=== PATIENT | male | born 1945 | race Caucasian/White ===

== ENCOUNTER → 2016-08-04 | Outpatient (REF) | payer MEDICARE, OTHER | LOC: M SFHCPLAZ 07:54 | PROVIDERS: ATTEND Internal Medicine | DX: R73.01 Impaired fasting glucose (principal); E78.00 Pure hypercholesterolemia, unspecified ==

== ENCOUNTER → 2016-08-27 | Outpatient (CLI) | payer MEDICARE, BC, OTHER ==
[2016-08-27 11:50] LABS: BASO % 0.3 % (0.0-1.0); EOS # 0.3 K/mm3 (0.0-0.50); LARGE UNSTAINED CELL # 0.1 K/mm3 (0.0-0.4); LARGE UNSTAINED CELL % 1.6 % (0.0-4.0); LYMPH # 0.5 K/mm3 (1.5-4.5); LYMPH % 5.9 % (24.0-44.0); MEAN CORPUSCULAR HEMOGLOBIN 31.6 pg (27.0-33.0); MEAN CORPUSCULAR HGB CONC 33.6 g/dl (32.0-36.5); MEAN CORPUSCULAR VOLUME 94.3 fl (80.0-96.0); MONO # 0.5 K/mm3 (0.0-0.8); MONO % 6.6 % (0.0-5.0); NEUTROPHILS # 5.8 K/mm3 (1.8-7.7); NEUTROPHILS % 81.6 % (36.0-66.0); PLATELET COUNT, AUTOMATED 233 k/mm3 (150-450); RED CELL DISTRIBUTION WIDTH 13.3 % (11.5-14.5); WHITE BLOOD COUNT 7.1 K/mm3 (4.0-10.0)
[2016-08-27 12:04] LABS: ALBUMIN 4.1 GM/DL (3.2-5.2); ALBUMIN/GLOBULIN RATIO 1.41 (1.00-1.93); BILIRUBIN,TOTAL 0.5 MG/DL (0.2-1.0); CALCIUM LEVEL 9.1 MG/DL (8.8-10.2); CREATININE FOR GFR 1.49 MG/DL (0.70-1.30); GLOMERULAR FILTRATION RATE 49.2 (>42); POTASSIUM SERUM 4.6 MEQ/L (3.5-5.1)
== END ==
LOC: M LAB 11:13
PROVIDERS: ATTEND Internal Medicine
DX: C82.06 Follicular lymphoma grade I, intrapelvic lymph nodes (principal)

== ENCOUNTER → 2016-09-01 | Outpatient (CLI) | payer MEDICARE, BC, OTHER ==
[~2016-09-01] MED LIST: GASTROGRAFIN SOLUTION 30ML (Q9963) As Ordered ONE; ISOVUE-370 76% 100ML VIAL (Q9967) As Ordered ONE
--- NOTE | 2016-09-01 14:04 | REP ---
Clinical: Follicular lymphoma. Technique: Axial contrast enhanced images from the lung bases to the pubic symphysis using oral and 100 ml Isovue 370 intravenous contrast material with precontrast and delayed images of the abdomen as well as coronal and sagittal re-formations. Comparison: 03/28/2016. Findings: Lung bases demonstrate bibasilar fibrotic changes. Visualized portions of the heart and pericardium are normal. Liver demonstrates small stable hepatic cysts without significant abnormality. Spleen is normal in size and appearance. Pancreas, gallbladder, and bilateral adrenal glands are normal. The left kidney is atrophic and demonstrates chronic inflammatory stranding predominate along the lower pole as well as stable cysts measuring up to 2.1 cm diameter. The right kidney demonstrates 2 mm nephrolith and multiple cysts including posterior exophytic cyst measuring 4.5 cm diameter and is unchanged compared to prior examination. The enteric system is without obstruction or acute inflammatory process and a normal terminal ileum and appendix are identified in the right lower quadrant. Scattered sigmoid diverticula noted without acute diverticulitis. Pelvis demonstrates normal bladder and mildly prominent prostate gland measuring 5 cm transverse diameter. No pelvic fluid or ascites. No significant intraperitoneal or retroperitoneal adenopathy. Atherosclerotic changes of the aorta and vasculature noted without aneurysm. Skeletal structures demonstrate degenerative changes. Impression: 1. 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 2. Chronic atrophic left kidney and bilateral renal cysts along with 2 mm nonobstructing right renal calculus unchanged compared to prior examination. 3. Few sigmoid diverticula without acute diverticulitis. 4. No ascites, mass, or intra-abdominal/pelvic adenopathy. Signed by Oliver Spring MD 09/01/2016 01:55 P
--- NOTE | 2016-09-01 14:05 | REP ---
CT of the chest with IV contrast: Comparisons are 10/22/2015 and 03/14/2014. Review of the film file reveals history of lymphoma and bladder carcinoma. There is a 3 mm nodule laterally in the right upper lobe on image 48, unchanged from 10/22/2015. On 03/14/2014, this nodule measured 5 mm. This is compatible with a benign nodule. 10/22/2015 there was a another right upper lobe lung nodule posteromedial to the above described nodule. This nodule is no longer present on the study today and was not present 03/14/2014. This is consistent with a small focal zone of transient atelectasis. There is an 8 mm nodule inferiorly in the right middle lobe, unchanged from both prior studies, therefore, likely benign. There are no other lung nodules or masses. There are no acute infiltrates or effusions. There is no hilar, mediastinal, or axillary lymph node enlargement. The thoracic aorta is unremarkable. Cardiac size normal. There is no pericardial effusion. Upper abdomen: There is a stable 11 mm hypodensity at the inferior tip of the hepatic right lobe, unchanged, compatible with hepatic cyst. There is a hypodensity in the dome of the liver measuring 9 mm, unchanged from prior studies, compatible with hepatic cyst. Visualized portions of the gallbladder, pancreas and spleen are unremarkable. Visualized portion of the right kidney contains a few renal cysts, largest posteriorly appears exophytic and measures 4.6 cm in diameter, not significantly changed from the prior studies. The visualized portion of the left kidney appears markedly atrophic. There are a few cortical cysts. This is a change from the prior studies where there was hydronephrosis. The adrenals are unremarkable. Impression: Right lung nodules are stable compared to 03/14/2014, therefore likely benign. One nodule has resolved compatible with transient focal atelectasis. There are no new lung nodules or masses. No acute infiltrates or effusions. No adenopathy. Small hypodense lesions in the liver are stable, compatible with hepatic cysts. Upper pole right renal cysts. The visualized upper pole of the left kidney is atrophic and contains cysts. The previous left hydronephrosis is no longer identified. No lytic, blastic or destructive skeletal changes are identified. Signed by Antonio Richards MD 09/01/2016 01:56 P
== END ==
LOC: M RAD 10:36
PROVIDERS: ATTEND Internal Medicine
DX: J84.10 Pulmonary fibrosis, unspecified (principal); N26.1 Atrophy of kidney (terminal); N28.1 Cyst of kidney, acquired; K57.32 Diverticulitis of large intestine without perforation or abscess without bleeding; K76.89 Other specified diseases of liver
CPT/HCPCS: 71260; 74178; Q9963; Q9967

== ENCOUNTER → 2016-11-24 | Outpatient (REF) | payer MEDICARE, BC, OTHER ==
[2016-11-24 12:35] LABS: BASO % 0.4 % (0.0-1.0); EOS # 0.3 K/mm3 (0.0-0.50); EOS % 4.3 % (0.0-3.0); LARGE UNSTAINED CELL # 0.1 K/mm3 (0.0-0.4); LARGE UNSTAINED CELL % 1.5 % (0.0-4.0); LYMPH # 0.5 K/mm3 (1.5-4.5); LYMPH % 7.5 % (24.0-44.0); MEAN CORPUSCULAR HEMOGLOBIN 30.5 pg (27.0-33.0); MEAN CORPUSCULAR HGB CONC 31.6 g/dl (32.0-36.5); MEAN CORPUSCULAR VOLUME 96.6 fl (80.0-96.0); MONO # 0.5 K/mm3 (0.0-0.8); NEUTROPHILS # 5.4 K/mm3 (1.8-7.7); NEUTROPHILS % 79.3 % (36.0-66.0); PLATELET COUNT, AUTOMATED 253 k/mm3 (150-450); RED CELL DISTRIBUTION WIDTH 12.9 % (11.5-14.5); WHITE BLOOD COUNT 6.8 K/mm3 (4.0-10.0)
[2016-11-24 13:19] LABS: ALBUMIN 4.2 GM/DL (3.2-5.2); ALBUMIN/GLOBULIN RATIO 1.62 (1.00-1.93); BILIRUBIN,TOTAL 0.5 MG/DL (0.2-1.0); CREATININE FOR GFR 1.53 MG/DL (0.70-1.30); GLOMERULAR FILTRATION RATE 47.7 (>42); IMMUNOGLOBULIN M 21.5 MG/DL (40-230); TOTAL PROTEIN 6.8 GM/DL (6.4-8.2)
[2016-11-24 13:25] LABS: POTASSIUM SERUM 5.3 MEQ/L (3.5-5.1)
== END ==
LOC: M LABDRWAD 12:16
PROVIDERS: ATTEND Internal Medicine
DX: C82.06 Follicular lymphoma grade I, intrapelvic lymph nodes (principal); C82.03 Follicular lymphoma grade I, intra-abdominal lymph nodes

== ENCOUNTER → 2017-02-11 | Outpatient (REF) | payer MEDICARE, OTHER ==
[2017-02-11 14:36] LABS: ALBUMIN 4.1 GM/DL (3.2-5.2); ALBUMIN/GLOBULIN RATIO 1.58 (1.00-1.93); BILIRUBIN,TOTAL 0.7 MG/DL (0.2-1.0); CALCIUM LEVEL 9.4 MG/DL (8.8-10.2); CREATININE FOR GFR 1.91 MG/DL (0.70-1.30); TOTAL PROTEIN 6.7 GM/DL (6.4-8.2)
[2017-02-11 14:40] LABS: POTASSIUM SERUM 5.2 MEQ/L (3.5-5.1)
== END ==
LOC: M SFHCPLAZ 07:55
PROVIDERS: ATTEND Internal Medicine
DX: R73.01 Impaired fasting glucose (principal); E78.00 Pure hypercholesterolemia, unspecified; C82.90 Follicular lymphoma, unspecified, unspecified site

== ENCOUNTER → 2017-02-11 | Outpatient (REF) | payer MEDICARE, OTHER ==
[2017-02-11 14:34] LABS: BASO % 0.7 % (0.0-1.0); EOS # 0.3 K/mm3 (0.0-0.50); EOS % 4.7 % (0.0-3.0); LARGE UNSTAINED CELL # 0.1 K/mm3 (0.0-0.4); LARGE UNSTAINED CELL % 1.2 % (0.0-4.0); LYMPH # 0.6 K/mm3 (1.5-4.5); LYMPH % 7.9 % (24.0-44.0); MEAN CORPUSCULAR HEMOGLOBIN 30.6 pg (27.0-33.0); MEAN CORPUSCULAR HGB CONC 33.2 g/dl (32.0-36.5); MEAN CORPUSCULAR VOLUME 92.1 fl (80.0-96.0); MONO # 0.4 K/mm3 (0.0-0.8); MONO % 7.3 % (0.0-5.0); NEUTROPHILS # 4.7 K/mm3 (1.8-7.7); NEUTROPHILS % 78.2 % (36.0-66.0); PLATELET COUNT, AUTOMATED 223 k/mm3 (150-450); RED CELL DISTRIBUTION WIDTH 13.1 % (11.5-14.5)
[2017-02-11 14:36] LABS: ALBUMIN 4.1 GM/DL (3.2-5.2); ALBUMIN/GLOBULIN RATIO 1.64 (1.00-1.93); BILIRUBIN,TOTAL 0.6 MG/DL (0.2-1.0); CALCIUM LEVEL 9.6 MG/DL (8.8-10.2); CREATININE FOR GFR 1.89 MG/DL (0.70-1.30); GLOMERULAR FILTRATION RATE 37.4 (>42); TOTAL PROTEIN 6.6 GM/DL (6.4-8.2)
[2017-02-11 14:39] LABS: POTASSIUM SERUM 5.2 MEQ/L (3.5-5.1)
== END ==
LOC: M LABDRAWP 13:49
PROVIDERS: ATTEND Internal Medicine
DX: C82.90 Follicular lymphoma, unspecified, unspecified site (principal)

== ENCOUNTER → 2017-02-17 | Outpatient (CLI) | payer MEDICARE, BC, OTHER ==
--- NOTE | 2017-02-17 11:12 | REP ---
CT of the chest without IV contrast: Comparison is the chest CT with IV contrast dated [birth year]19[birth year]. Routine. Studies performed for lymphoma. However, I note the patient has additional clinical history of bladder carcinoma and cystectomy and history of renal collecting system calculi. The patients creatinine is 1.89 and the the patient indicates that he is a dialysis patient. 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 The 3 mm nodule laterally in the right upper lobe is again identified on image 48, unchanged, and also unchanged from 10/22/2015. This measured 5 mm of 03/14/2014. This is again compatible with a benign nodule. There is a 8 mm nodule inferiorly in the right middle lobe on image 79. This is unchanged from 03/14/2014, therefore, likely benign. There are no other lung nodules or masses. There are no acute infiltrates or effusions. There is no mediastinal lymph node enlargement. There is no axillary lymph node enlargement. In the absence of IV contrast the study is insensitive for hilar lymph node enlargement. The thoracic aorta is unremarkable. Cardiac size is normal. There is coronary artery calcified atheroma. Upper abdomen: There are small focal hypodense lesions in the liver, stable and unchanged. The gallbladder, pancreas and spleen are unremarkable. There is a nonobstructive calcification and a cyst in the upper pole of the right kidney. These are unchanged. In the visualized portion of the left renal upper pole, there appears to be hydronephrosis as an interval change. The visualized portion of the left kidney is markedly atrophic. This is also unchanged. No periaortic or mesenteric adenopathy is identified in the upper abdomen. Impression: No significant interval change. There are stable lung nodules as described, therefore, likely benign. There are stable hypo densities in the liver, likely benign. There is no mediastinal or axillary adenopathy. In the absence of IV contrast the study is insensitive for hilar adenopathy. Renal cortical atrophy of the left renal upper pole is again identified. I suspect that there is hydronephrosis in the visualized portion of the left renal upper pole. There is aright renal upper pole cyst and a nonobstructive calculus. These are unchanged. Signed by Antonio Richards MD 02/17/2017 11:04 A
--- NOTE | 2017-02-17 11:38 | REP ---
CT of the abdomen pelvis without IV or bowel contrast: Is performed for evaluation of grade 3 follicular lymphoma of lymph nodes in the axilla. Comparison is a CT of the abdomen pelvis of 09/01/2016. Additional information provided by the patient indicates he has also has a history of primary carcinoma of the bladder and has had the bladder carcinoma removed. He also indicates that he is a dialysis patient. Scan is performed from the diaphragms to the pubic symphysis without IV contrast. There is bowel contrast. There are a few small cysts in the right lobe of the liver, unchanged. The hepatic parenchyma is otherwise homogeneous and unremarkable. The gallbladder, pancreas and spleen are normal size and unremarkable. The adrenals are unremarkable and unchanged. There is a 4.9 cm exophytic cyst at the right renal upper pole, not significantly changed. There are a few other small right renal cysts, unchanged and there is a nonobstructive right renal calcification, unchanged. There is no right renal hydronephrosis. The upper pole left kidney is markedly atrophic. The calyces of the left kidney are dilated as a change , however the left ureter is not dilated. No left renal or ureteral calculi are identified. There is a small left renal cortical cyst, unchanged. The abdominal aorta is unremarkable. There is no retroperitoneal adenopathy. There is no mesenteric adenopathy. There is no ascites. The wall of the gastric antrum is thickened as an interval change. This is nonspecific and could be artifact from under distension, however, lymphomatous infiltration cannot be entirely discounted. The bowel and mesentery are otherwise unremarkable. Pelvis: The appendix is unremarkable. There is no adenopathy or ascites. The bladder is unremarkable. There is a bone island posteriorly in the left iliac wing, unchanged from a prior study of 07/18/2005. Impression: There is no adenopathy or ascites. The left renal calyces are dilated as an interval change. The left ureter is not dilated. There is chronic atrophy of the left renal upper pole. There are chronic bilateral renal cysts. There are stable unchanged hepatic cysts. There is a nonobstructive right renal calcification. There is a stable bone island posteriorly in the left iliac wing. Signed by Antonio Richards MD 02/17/2017 11:29 A
== END ==
LOC: M RAD 08:48
PROVIDERS: ATTEND Internal Medicine
DX: C82.03 Follicular lymphoma grade I, intra-abdominal lymph nodes (principal); C82.90 Follicular lymphoma, unspecified, unspecified site; N28.1 Cyst of kidney, acquired
CPT/HCPCS: 71250; 74176; Q9963

== ENCOUNTER → 2017-02-18 | Outpatient (CLI) | payer MEDICARE, BC, OTHER ==
--- NOTE | 2017-02-18 17:51 | REP ---
BILATERAL RENAL ULTRASOUND: 02/18/2017. Clinical history: Hypertension, left renal atrophy. Prior bladder carcinoma. Comparison: 08/15/2015 ultrasound. Findings: Sonographic evaluation of the kidneys show the right to be 10.8 x 5.5 x 5.6 cm. Previously it was 10.3 x 6.8 x 5.2 cm. There are multiple cysts involving the right kidney and the largest off the upper pole superiorly 5.1 x 3.4 x 4.1 cm. Peripherally a lateral upper pole cyst 1 x 0.9 x 0.9 cm and in the interpolar region laterally in the cortex a 1.7 x 1.6 x 1.6 cm cyst. There is cortical thinning and increased sinus fat suggesting sinus lipomatosis. There may be some mild chronic medical renal disease. No hydronephrosis or stone. The left kidney is now 8.9 x 3.8 x 4.5 cm, on the previous ultrasound it measured 13.5 x 6.9 x 7.5 cm. There is an upper pole cyst noted, exophytic and 1.9 x 1.8 x 1.7 cm. There is mild to moderate hydronephrosis evident. No definite stone. The bladder was not well distended. A right-sided ureteral jet was observed. A left ureteral jet was not observed. Limited filling of the bladder. No other finding. Impression: 1. Right kidney with multiple cysts and no hydronephrosis or hydroureter. The left kidney is atrophic in the interval from August 2005 with some mild to moderate hydronephrosis and the proximal hydroureter is 12.6 mm. That left kidney also shows a cyst 1.9 x 1.8 cm. 2. Prostate enlarged but the bladder not well filled and cannot be characterized well. There is ureteral jet phenomenon on the right not on the left. Signed by Peyman Cedeno MD 02/20/2017 10:37 A
== END ==
LOC: M RAD 13:46
PROVIDERS: ATTEND Internal Medicine
DX: N26.1 Atrophy of kidney (terminal) (principal); N28.1 Cyst of kidney, acquired; N40.0 Benign prostatic hyperplasia without lower urinary tract symptoms; I10 Essential (primary) hypertension; Z85.51 Personal history of malignant neoplasm of bladder

== ENCOUNTER → 2017-05-27 | Outpatient (REF) | payer MEDICARE, BC, OTHER | LOC: M LABDRWAD 12:52 | PROVIDERS: ATTEND Urology | DX: C67.9 Malignant neoplasm of bladder, unspecified (principal) ==

== ENCOUNTER 2017-06-18 08:15 | Day surgery (SDC) | payer MEDICARE, BC, OTHER ==
[~2017-06-18] VITALS: Ht 175.3 cm; Wt 98.9 kg
[~2017-06-18 08:15] MED LIST changes: +ASPI1TAB PO; +CO Q10CA PO; -GASTROGRAFIN SOLUTION 30ML (Q9963) As Ordered ONE; +GLUC1CAP10 PO; -ISOVUE-370 76% 100ML VIAL (Q9967) As Ordered ONE; +LOSA100T36; +MULT1TAB10 PO; +SIMV40TA2
[2017-06-18] MEDS ORDERED: PROPOFOL 200 MG/20 ML VIAL As Ordered ONE (09:31)
[2017-06-18] MEDS ORDERED: EMLA CREAM 5GM (LIDOCAINE/PRILOCAINE) TOP ONE (10:00)
[2017-06-18] MEDS ORDERED: LR 1,000 ML IV SCH (10:00)
--- NOTE | 2017-06-18 10:09 | ROOR ---
Patient Name: Holger Kendall Procedure Date: 06/18/2017 9:49 AM Date of : 1945 Age: 71 Room: [facility] Gender: Male Note Status: Finalized Procedure: Colonoscopy Indications: High risk colon cancer surveillance: Personal history of colonic polyps Providers: Kamron Thompson Jr, MD Referring MD: Sunny Johnson MD Requesting Provider: Medicines: Propofol per Anesthesia Complications: No immediate complications. Procedure: Pre-Anesthesia Assessment: - Prior to the procedure, a History and Physical was performed, and patient medications and allergies were reviewed. The patient is competent. The risks and benefits of the procedure and the sedation options and risks were discussed with the patient. All questions were answered and informed consent was obtained. Patient identification and proposed procedure were verified by the physician and the nurse in the pre-procedure area and in the procedure room. Mental Status Examination: alert and oriented. Airway Examination: normal oropharyngeal airway and neck mobility. Respiratory Examination: clear to auscultation. CV Examination: normal. ASA Grade Assessment: II - A patient with mild systemic disease. After reviewing the risks and benefits, the patient was deemed in satisfactory condition to undergo the procedure. The anesthesia plan was to use moderate sedation / analgesia (conscious sedation). Immediately prior to administration of medications, the patient was re-assessed for adequacy to receive sedatives. The heart rate, respiratory rate, oxygen saturations, blood pressure, adequacy of pulmonary ventilation, and response to care were monitored throughout the procedure. The physical status of the patient was re-assessed after the procedure. The Colonoscope was introduced through the anus and advanced to the cecum, identified by appendiceal orifice and ileocecal valve. The colonoscopy was performed without difficulty. The patient tolerated the procedure well. The quality of the bowel preparation was adequate and good. Findings: The descending colon, transverse colon, ascending colon, cecum, appendiceal orifice and ileocecal valve appeared normal. A few small and large-mouthed diverticula were found in the sigmoid colon. Three polyps were found in the rectum and recto-sigmoid colon. The polyps were small in size. These polyps were removed with a hot snare. Resection and retrieval were complete. Impression: - The descending colon, transverse colon, ascending colon, cecum, appendiceal orifice and ileocecal valve are normal. - Diverticulosis in the sigmoid colon. - Three small polyps in the rectum and at the recto-sigmoid colon, removed with a hot snare. Resected and retrieved. Recommendation: - Repeat colonoscopy in 5-10 years for surveillance based on pathology results. Kamron Thompson MD Kamron Thompson Jr, MD 06/18/2017 10:09:14 AM This report has been signed electronically. Number of Addenda: 0 Note Initiated On: 06/18/2017 9:49 AM Estimated Blood Loss: Estimated blood loss: none.
[2017-06-18 10:38] VITALS: BP 126/68
== END 2017-06-18 10:41 | disposition home or self-care (01) ==
LOC: M OPP 08:15
PROVIDERS: ATTEND Surgery
DX: Z12.11 Encounter for screening for malignant neoplasm of colon (principal); Z86.010 Personal history of colon polyps; K62.1 Rectal polyp; D12.7 Benign neoplasm of rectosigmoid junction; K57.30 Diverticulosis of large intestine without perforation or abscess without bleeding; I12.9 Hypertensive chronic kidney disease with stage 1 through stage 4 chronic kidney disease, or unspecified chronic kidney disease; C82.90 Follicular lymphoma, unspecified, unspecified site; C67.9 Malignant neoplasm of bladder, unspecified; E78.5 Hyperlipidemia, unspecified; N18.9 Chronic kidney disease, unspecified; Z92.21 Personal history of antineoplastic chemotherapy; Z87.442 Personal history of urinary calculi; Z79.82 Long term (current) use of aspirin; Z79.899 Other long term (current) drug therapy; Z88.8 Allergy status to other drugs, medicaments and biological substances; Z87.891 Personal history of nicotine dependence; Z80.42 Family history of malignant neoplasm of prostate

== ENCOUNTER → 2017-08-21 | Outpatient (REF) | payer MEDICARE, OTHER ==
[2017-08-21 14:28] LABS: PTH INTACT 32.7 PG/ML (18.5-88.0)
[2017-08-21 14:29] LABS: ALBUMIN 4.2 GM/DL (3.2-5.2); ALBUMIN/GLOBULIN RATIO 1.56 (1.00-1.93); ALKALINE PHOSPHATASE 106 U/L (45-117); ALT/SGPT 28 U/L (12-78); ANION GAP 7 MEQ/L (8-16); AST/SGOT 20 U/L (7-37); BILIRUBIN,TOTAL 0.8 MG/DL (0.2-1.0); BLOOD UREA NITROGEN 31 MG/DL (7-18); CALCIUM LEVEL 9.4 MG/DL (8.8-10.2); CARBON DIOXIDE LEVEL 28 MEQ/L (21-32); CHLORIDE LEVEL 108 MEQ/L (98-107); CHOLESTEROL LEVEL 174 MG/DL (<200); CHOLESTEROL RISK RATIO 3.702 (<5); CREATININE FOR GFR 1.51 MG/DL (0.70-1.30); GLOMERULAR FILTRATION RATE 48.3 (>42); GLUCOSE, FASTING 98 MG/DL (70-100); HDL CHOLESTEROL 47 MG/DL (>40); LDL CHOLESTEROL 110.6 MG/DL (<100); MAGNESIUM LEVEL 2.3 MG/DL (1.8-2.4); NON-HDL-C 127 MG/DL; POTASSIUM SERUM 4.9 MEQ/L (3.5-5.1); SODIUM LEVEL 143 MEQ/L (136-145); TOTAL PROTEIN 6.9 GM/DL (6.4-8.2); TRIGLYCERIDES LEVEL 82 MG/DL (<150)
== END ==
LOC: M SFHCPLAZ 10:21
DX: E78.00 Pure hypercholesterolemia, unspecified (principal); I12.9 Hypertensive chronic kidney disease with stage 1 through stage 4 chronic kidney disease, or unspecified chronic kidney disease; N18.3 Chronic kidney disease, stage 3 (moderate)

== ENCOUNTER → 2017-08-21 | Outpatient (CLI) | payer MEDICARE, BC, OTHER | LOC: M RAD 12:09 | DX: C82.03 Follicular lymphoma grade I, intra-abdominal lymph nodes (principal); C67.9 Malignant neoplasm of bladder, unspecified; J98.4 Other disorders of lung; N28.81 Hypertrophy of kidney; E78.00 Pure hypercholesterolemia, unspecified; I12.9 Hypertensive chronic kidney disease with stage 1 through stage 4 chronic kidney disease, or unspecified chronic kidney disease; N18.3 Chronic kidney disease, stage 3 (moderate) | CPT/HCPCS: 71250 ==

== ENCOUNTER → 2017-09-23 | Outpatient (CLI) | payer MEDICARE, BC, OTHER | LOC: M PLARAD 09:18 | DX: C85.99 Non-Hodgkin lymphoma, unspecified, extranodal and solid organ sites (principal) | CPT/HCPCS: 78815 ==

== ENCOUNTER → 2017-12-14 | Outpatient (CLI) | payer MEDICARE, BC, OTHER ==
[~2017-12-14] MED LIST changes: -ASPI1TAB PO; -CO Q10CA PO; +GASTROGRAFIN SOLUTION 30ML (Q9963) As Ordered; -GLUC1CAP10 PO; +ISOVUE-370 76% 100ML VIAL (Q9967) As Ordered; -LOSA100T36; -MULT1TAB10 PO; -SIMV40TA2
== END ==
LOC: M RAD 08:54
DX: C82.00 Follicular lymphoma grade I, unspecified site (principal)
CPT/HCPCS: Q9963

== ENCOUNTER → 2018-03-01 | Outpatient (REF) | payer MEDICARE, OTHER ==
[2018-03-01 12:21] LABS: ALBUMIN 3.7 GM/DL (3.2-5.2); ALBUMIN/GLOBULIN RATIO 1.28 (1.00-1.93); ALKALINE PHOSPHATASE 86 U/L (45-117); ALT/SGPT 30 U/L (12-78); ANION GAP 10 MEQ/L (8-16); AST/SGOT 20 U/L (7-37); BILIRUBIN,TOTAL 0.6 MG/DL (0.2-1.0); BLOOD UREA NITROGEN 25 MG/DL (7-18); CALCIUM LEVEL 8.9 MG/DL (8.8-10.2); CARBON DIOXIDE LEVEL 23 MEQ/L (21-32); CHLORIDE LEVEL 111 MEQ/L (98-107); CREATININE FOR GFR 1.37 MG/DL (0.70-1.30); GLOMERULAR FILTRATION RATE 54.1 (>42); GLUCOSE, FASTING 105 MG/DL (70-100); MAGNESIUM LEVEL 2.3 MG/DL (1.8-2.4); POTASSIUM SERUM 4.3 MEQ/L (3.5-5.1); SODIUM LEVEL 144 MEQ/L (136-145); TOTAL PROTEIN 6.6 GM/DL (6.4-8.2)
[2018-03-01 12:32] LABS: PTH INTACT 34.5 PG/ML (18.5-88.0)
== END ==
LOC: M SFHCPLAZ 08:12
DX: I12.9 Hypertensive chronic kidney disease with stage 1 through stage 4 chronic kidney disease, or unspecified chronic kidney disease (principal); N18.3 Chronic kidney disease, stage 3 (moderate)
CPT/HCPCS: 83735

== ENCOUNTER → 2018-03-24 | Outpatient (CLI) | payer MEDICARE, BC, OTHER | LOC: M RAD 11:50 | DX: C82.03 Follicular lymphoma grade I, intra-abdominal lymph nodes (principal) | CPT/HCPCS: Q9963 ==

== ENCOUNTER → 2018-05-25 | Outpatient (CLI) | payer MEDICARE, BC, OTHER | LOC: M PLARAD 12:22 | DX: C82.53 Diffuse follicle center lymphoma, intra-abdominal lymph nodes (principal); Z85.51 Personal history of malignant neoplasm of bladder | CPT/HCPCS: 78816 ==

== ENCOUNTER → 2018-05-28 | Outpatient (REF) | payer MEDICARE, OTHER ==
[2018-05-28 13:21] LABS: PROSTATIC SPECIFIC AG MONITOR 2.7 NG/ML (< 4.0)
== END ==
LOC: M LABDRWAD 12:34
DX: R97.20 Elevated prostate specific antigen [PSA] (principal)
CPT/HCPCS: 84153

== ENCOUNTER → 2018-06-14 | Outpatient (REF) | payer MEDICARE, OTHER ==
[2018-06-14 20:09] LABS: ALKALINE PHOSPHATASE 93 U/L (45-117); ALT/SGPT 36 U/L (12-78); ANION GAP 6 MEQ/L (8-16); AST/SGOT 22 U/L (7-37); BLOOD UREA NITROGEN 22 MG/DL (7-18); CALCIUM LEVEL 8.7 MG/DL (8.8-10.2); CARBON DIOXIDE LEVEL 28 MEQ/L (21-32); CHLORIDE LEVEL 107 MEQ/L (98-107); CREATININE FOR GFR 1.44 MG/DL (0.70-1.30); GLOMERULAR FILTRATION RATE 51.1 (>42); GLUCOSE, FASTING 85 MG/DL (70-100); POTASSIUM SERUM 4.5 MEQ/L (3.5-5.1); SODIUM LEVEL 141 MEQ/L (136-145)
[2018-06-14 20:10] LABS: ALBUMIN 4.1 GM/DL (3.2-5.2); ALBUMIN/GLOBULIN RATIO 1.78 (1.00-1.93); BILIRUBIN,TOTAL 0.6 MG/DL (0.2-1.0); TOTAL PROTEIN 6.4 GM/DL (6.4-8.2)
== END ==
LOC: M LABDRWAD 19:08
DX: C82.03 Follicular lymphoma grade I, intra-abdominal lymph nodes (principal)
CPT/HCPCS: 80053

== ENCOUNTER → 2018-09-07 | Outpatient (REF) | payer MEDICARE, OTHER ==
[~2018-09-07] MED LIST changes: +ASPI1TAB PO; +CO Q10CA PO; -GASTROGRAFIN SOLUTION 30ML (Q9963) As Ordered; +GLUC1CAP10 PO; -ISOVUE-370 76% 100ML VIAL (Q9967) As Ordered; +LOSA100T50; +MULT1TAB10 PO; +SIMV40TA2
[2018-09-07 12:05] LABS: HEMOGLOBIN A1c 5.7 %
[2018-09-07 12:51] LABS: ALBUMIN 4.2 GM/DL (3.2-5.2); BILIRUBIN,TOTAL 0.5 MG/DL (0.2-1.0); CALCIUM LEVEL 8.8 MG/DL (8.8-10.2); CHOLESTEROL RISK RATIO 3.18 (<5); CREATININE FOR GFR 1.69 MG/DL (0.70-1.30); GLOMERULAR FILTRATION RATE 42.3 (>42); MAGNESIUM LEVEL 2.2 MG/DL (1.8-2.4); POTASSIUM SERUM 5.3 MEQ/L (3.5-5.1); PTH INTACT 57.5 PG/ML (18.5-88.0); TOTAL PROTEIN 6.8 GM/DL (6.4-8.2)
== END ==
LOC: M SFHCPLAZ 08:31
PROVIDERS: ATTEND Internal Medicine
DX: I12.9 Hypertensive chronic kidney disease with stage 1 through stage 4 chronic kidney disease, or unspecified chronic kidney disease (principal); R73.01 Impaired fasting glucose; E78.00 Pure hypercholesterolemia, unspecified; N18.3 Chronic kidney disease, stage 3 (moderate)

== ENCOUNTER → 2019-01-25 | Outpatient (CLI) | payer MEDICARE, BC, OTHER ==
[~2019-01-25] MED LIST changes: -ASPI1TAB PO; +ASPI81TA26 PO; -SIMV40TA2; +SIMV40TA20
--- NOTE | 2019-01-25 12:41 | REP ---
PET/CT: History: Restaging diffuse follicular lymphoma. Intra-abdominal disease. Comparisons: Prior PET/CT studies from May 25, 2018 and September 23, 2017. TECHNIQUE: 50 minutes following the intravenous injection of a 8.50 mCi dose of F-18 FDG, three-dimensional PET scintigraphy is acquired from the skull base to the proximal thighs. Triplanar noncontrast CT scanning is acquired through the same anatomic range for attenuation correction, and image registration with scan parameters optimized to minimize radiation exposure to the patient. PET scintigraphy and CT datasets were fused and displayed on a workstation with multiplanar and projection display capability. PET/CT Findings: There is continued improvement in the infiltrative perirenal process at the lower pole of the atrophic left kidney. Some residual hypermetabolic tissue remains here with maximum standard uptake value today 5.03, previously 6.9 on May 25, 2018, and 11.28 on September of 2017. The area in question appears slightly smaller. No other abnormal hypermetabolic uptake is visible. No abnormal adenopathy is seen. No abnormal hypermetabolic uptake is seen in the chest. Head and neck soft tissues are unremarkable. Impression: There is still some residual hypermetabolic uptake at the lower pole of the left kidney but this is yet again improved from the prior study. No other area of abnormal hypermetabolic uptake is seen. Electronically Signed by Obinna Hawkins MD 01/25/2019 03:02 P
== END ==
LOC: M PLARAD 08:25
PROVIDERS: ATTEND Radiology Therapeutic Radiology
DX: C82.53 Diffuse follicle center lymphoma, intra-abdominal lymph nodes (principal)
CPT/HCPCS: 78815; A9552

== ENCOUNTER → 2019-03-09 | Outpatient (REF) | payer MEDICARE, OTHER ==
[~2019-03-09] MED LIST changes: +SIMV40TA2; -SIMV40TA20
[2019-03-09 11:53] LABS: BILIRUBIN,TOTAL 0.7 MG/DL (0.2-1.0); CALCIUM LEVEL 9.4 MG/DL (8.8-10.2); CREATININE FOR GFR 1.63 MG/DL (0.70-1.30); GLOMERULAR FILTRATION RATE 44.1 (>42); MAGNESIUM LEVEL 2.4 MG/DL (1.8-2.4); TOTAL PROTEIN 6.7 GM/DL (6.4-8.2)
[2019-03-09 11:56] LABS: PTH INTACT 51.3 PG/ML (18.5-88.0)
== END ==
LOC: M SFHCPLAZ 08:48
PROVIDERS: ATTEND Internal Medicine
DX: I12.9 Hypertensive chronic kidney disease with stage 1 through stage 4 chronic kidney disease, or unspecified chronic kidney disease (principal); N18.3 Chronic kidney disease, stage 3 (moderate)

== ENCOUNTER → 2019-05-12 | Outpatient (CLI) | payer MEDICARE, BC, OTHER ==
[~2019-05-12] MED LIST changes: +GASTROGRAFIN SOLUTION 30ML (Q9963) As Ordered ONE; +ISOVUE-370 76% 100ML VIAL (Q9967) As Ordered ONE
--- NOTE | 2019-05-12 10:48 | REP ---
Clinical: Follicular lymphoma. Technique: Axial contrast enhanced images from the lung bases to the pubic symphysis using oral (per protocol) and 100 ml Isovue 370 intravenous contrast material with delayed images of the abdomen as well as coronal and sagittal re-formations. Comparison: 03/24/2018 Findings: Liver demonstrates stable simple cysts. Spleen, pancreas, gallbladder, bilateral adrenal glands are normal. Right kidney includes multiple stable simple cysts along with posterior exophytic stable cysts measuring 5.1 cm maximal diameter. The left kidney demonstrates chronic atrophy, cysts and perinephric inflammatory stranding primarily noted at the lower pole which may be slightly improved when compared to prior examination. The enteric system is without obstruction or acute inflammatory process. Circumferential mucosal thickening of the gastric pylorus is nonspecific. Pelvis demonstrates normal bladder and moderately prominent heterogeneous prostate gland measuring approximately 4.8 cm transverse diameter. No significant intraperitoneal or retroperitoneal adenopathy. Atherosclerotic changes to the aorta and vasculature noted without aneurysm or dissection. Incidental retroaortic left renal vein noted. Osseous structures demonstrate degenerative changes without focal abnormality. Impression: 1. No adenopathy. 2. Inflammatory stranding involving the inferior pole of the left kidney appears slightly improved as compared to prior examination. 3. Stable hepatic and renal cysts. 4. Mildly enlarged heterogeneous prostate gland. 5. Further nonacute findings as above. No ascites. Electronically Signed by Oliver Spring MD 05/12/2019 10:40 A
--- NOTE | 2019-05-12 11:17 | REP ---
CT chest with IV contrast: History: Follicular lymphoma.. The patient gives a history of bladder carcinoma as well. CT contrast dose: 100 mL of intravenous Isovue 370. Comparison CT study March 24, 2018. CT findings: There is good opacification of the mediastinal vascular structures. There are filling defects in the segmental branch of the right upper lobe pulmonary arterial tree and in a subsegmental branch of the right lower lobe pulmonary arterial tree consistent with pulmonary emboli. These findings are new when compared with the March 24, 2018 study. No more central embolus is appreciated. No left-sided embolus is seen. The thoracic aorta is unremarkable and unchanged except for some vascular calcification. There is no evidence of pleural or pericardial effusion. The lung harris show no evidence of infiltrate, mass, or new nodule. No hilar or mediastinal mass or adenopathy is seen. No bony destructive lesion is appreciated. No adrenal lesion is observed. There are two tiny stable low density lesions in the liver consistent with cyst. There is fatty infiltration of the liver. There are right renal cysts and left renal cysts. There is marked atrophy of the left kidney as previously noted. Impression: Incidental finding of new filling defects in the pulmonary arterial tree in the right upper lobe and right lower lobe consistent with pulmonary embolism. No evidence of new mass or adenopathy. Electronically Signed by Obinna Hawkins MD 05/12/2019 11:25 A
== END ==
LOC: M RAD 08:09
PROVIDERS: ATTEND Internal Medicine Hematology & Oncology
DX: N28.1 Cyst of kidney, acquired (principal); N40.0 Benign prostatic hyperplasia without lower urinary tract symptoms; K76.89 Other specified diseases of liver; C82.03 Follicular lymphoma grade I, intra-abdominal lymph nodes
CPT/HCPCS: 71260; 74177; Q9963; Q9967

== ENCOUNTER → 2019-06-02 | Outpatient (CLI) | payer MEDICARE, BC, OTHER ==
[~2019-06-02] MED LIST changes: -GASTROGRAFIN SOLUTION 30ML (Q9963) As Ordered ONE; -ISOVUE-370 76% 100ML VIAL (Q9967) As Ordered ONE
--- NOTE | 2019-06-02 21:17 | REP ---
Duplex extremity venous ultrasound: Bilateral lower extremities. History: Pulmonary embolism. Grade 1 follicular lymphoma. Findings: The deep veins are anechoic and fully compressible from the groin to the popliteal fossa in the left and right lower extremity. Color flow imaging is homogeneous. Spectral Doppler interrogation demonstrates intact respiratory variation in flow and normal manual augmentation of flow. There is no evidence of deep vein thrombosis. Impression: Negative bilateral lower extremity duplex venous ultrasound. No evidence of deep vein thrombosis. Electronically Signed by Obinna Hawkins MD 06/02/2019 03:55 P
== END ==
LOC: M RAD 15:02
PROVIDERS: ATTEND Internal Medicine Hematology & Oncology
DX: C82.03 Follicular lymphoma grade I, intra-abdominal lymph nodes (principal); I26.99 Other pulmonary embolism without acute cor pulmonale

== ENCOUNTER → 2019-08-04 | Outpatient (REF) | payer MEDICARE, BC, OTHER ==
[~2019-08-04] MED LIST changes: -SIMV40TA2; +SIMV40TA20
== END ==
LOC: M LAB REF 10:08
PROVIDERS: ATTEND Dermatology
DX: D48.9 Neoplasm of uncertain behavior, unspecified (principal)
CPT/HCPCS: 11102; 17000; 17003; 88305; G0463

== ENCOUNTER → 2019-08-16 | Outpatient (REF) | payer MEDICARE, OTHER ==
[2019-08-19 14:09] LABS: BETA-2 GLYCOPROTEIN I ABY IGA <9 (0-25); BETA-2 GLYCOPROTEIN I ABY IGG <9 (0-20); BETA-2 GLYCOPROTEIN I ABY IGM <9 (0-32); CARDIOLIPIN IGA ANTIBODY <9 APL U/mL (0-11); CARDIOLIPIN IGG ANTIBODY <9 GPL U/mL (0-14); CARDIOLIPIN IGM ANTIBODY <9 MPL U/mL (0-12); PROTEIN C FUNCTIONAL ACTIVITY 116 % (73-180); PROTEIN S FUNCTIONAL ACTIVITY 82 % (63-140)
[2019-08-23 11:19] LABS: DRVV SCREEN 47.2 SEC
[2019-08-23 11:29] LABS: PTT LUPUS TYPE ANTICOAG SCREEN 1.2 (0-1.2)
[2019-08-23 11:36] LABS: DRVV CONFIRM 40.8 SEC
[2019-08-23 11:39] LABS: NORMALIZED RATIO 1.2 (0.00-1.20)
== END ==
LOC: M LABDRWAD 10:46
PROVIDERS: ATTEND Internal Medicine Hematology & Oncology
DX: I26.99 Other pulmonary embolism without acute cor pulmonale (principal); C82.03 Follicular lymphoma grade I, intra-abdominal lymph nodes; Z79.899 Other long term (current) drug therapy

== ENCOUNTER → 2019-08-17 | Outpatient (REF) | payer MEDICARE, OTHER ==
[2019-08-19 14:09] LABS: PROTEIN C RESISTANCE ACTIVATED 2.8 ratio (2.2-3.5)
== END ==
LOC: M LABDRWAD 13:09
PROVIDERS: ATTEND Internal Medicine Hematology & Oncology
DX: C82.03 Follicular lymphoma grade I, intra-abdominal lymph nodes (principal)

== ENCOUNTER → 2019-09-05 | Outpatient (REF) | payer MEDICARE, OTHER ==
[2019-09-05 13:14] LABS: ALBUMIN 3.6 GM/DL (3.2-5.2); BILIRUBIN,TOTAL 0.5 MG/DL (0.2-1.0); CALCIUM LEVEL 9.5 MG/DL (8.8-10.2); CHOLESTEROL RISK RATIO 3.361 (<5); CREATININE FOR GFR 1.82 MG/DL (0.70-1.30); GLOMERULAR FILTRATION RATE 38.8 (>42); POTASSIUM SERUM 4.7 MEQ/L (3.5-5.1); PTH INTACT 32.9 PG/ML (18.5-88.0); TOTAL PROTEIN 6.4 GM/DL (6.4-8.2)
[2019-09-05 13:59] LABS: MALB URINE SIEMENS 16.1 MG/L; MAU/CREAT RATIO 13.5 MCG/MG (0.0-30.0)
== END ==
LOC: M SFHCADAM 10:32
PROVIDERS: ATTEND Internal Medicine
DX: E78.00 Pure hypercholesterolemia, unspecified (principal); R73.01 Impaired fasting glucose; N18.3 Chronic kidney disease, stage 3 (moderate)

== ENCOUNTER → 2019-10-10 | Outpatient (REF) | payer MEDICARE, OTHER ==
[2019-10-10 12:47] LABS: HEMATOCRIT 26.8 % (42.0-52.0); HEMOGLOBIN 8.5 g/dl (13.5-17.5); MEAN CORPUSCULAR HEMOGLOBIN 27.6 pg (27.0-33.0); MEAN CORPUSCULAR HGB CONC 31.7 g/dl (32.0-36.5); RED BLOOD COUNT 3.08 10^6/uL (4.30-6.10); WHITE BLOOD COUNT 1.7 10^3/uL (4.0-10.0)
[2019-10-10 13:41] LABS: PLATELET COUNT, AUTOMATED 44 10^3/uL (150-450)
[2019-10-10 13:49] LABS: ATYPICAL LYMPH 1 % (0-5); BASOPHILS 2 % (0-1); EOSINOPHILS 10 % (0-3); LYMPHOCYTES 34 % (16-44); METAMYELOCYTES 4 % (0-0); MONOCYTES 10 % (0-5); NEUTROPHILS 34 % (28-66); PLATELET ESTIMATE MARKED DECREASE (NORMAL); POIKILOCYTOSIS 2+
[2019-10-10 13:51] LABS: SCHISTOCYTES 1+
[2019-10-10 13:52] LABS: OVALOCYTES 2+
== END ==
LOC: M LABDRWAD 12:14
PROVIDERS: ATTEND Internal Medicine Hematology & Oncology
DX: D46.Z Other myelodysplastic syndromes (principal)

== ENCOUNTER → 2019-10-13 | Outpatient (REF) | payer MEDICARE, OTHER ==
[2019-10-13 13:09] LABS: HEMATOCRIT 24.4 % (42.0-52.0); HEMOGLOBIN 7.9 g/dl (13.5-17.5); MEAN CORPUSCULAR HEMOGLOBIN 27.8 pg (27.0-33.0); MEAN CORPUSCULAR HGB CONC 32.4 g/dl (32.0-36.5); MEAN CORPUSCULAR VOLUME 85.9 fl (80.0-96.0); RED BLOOD COUNT 2.84 10^6/uL (4.30-6.10); WHITE BLOOD COUNT 1.8 10^3/uL (4.0-10.0)
[2019-10-13 13:10] LABS: PLATELET COUNT, AUTOMATED 35 10^3/uL (150-450)
[2019-10-13 13:42] LABS: ATYPICAL LYMPH 1 % (0-5); BASOPHILS 1 % (0-1); EOSINOPHILS 7 % (0-3); LYMPHOCYTES 35 % (16-44); METAMYELOCYTES 4 % (0-0); MONOCYTES 4 % (0-5); MYELOCYTES 7 % (0-0); NEUTROPHILS 39 % (28-66)
[2019-10-13 13:43] LABS: OVALOCYTES 2+; SCHISTOCYTES 1+
[2019-10-13 13:44] LABS: ANISOCYTOSIS 2+; PLATELET ESTIMATE MARKED DECREASE (NORMAL); POIKILOCYTOSIS 2+
== END ==
LOC: M LABDRWAD 12:38
PROVIDERS: ATTEND Internal Medicine Hematology & Oncology
DX: D46.Z Other myelodysplastic syndromes (principal)

== ENCOUNTER → 2019-10-17 | Outpatient (REF) | payer MEDICARE, OTHER ==
[2019-10-17 12:51] LABS: HEMATOCRIT 26.1 % (42.0-52.0); HEMOGLOBIN 8.4 g/dl (13.5-17.5); MEAN CORPUSCULAR HEMOGLOBIN 27.8 pg (27.0-33.0); MEAN CORPUSCULAR HGB CONC 32.2 g/dl (32.0-36.5); MEAN CORPUSCULAR VOLUME 86.4 fl (80.0-96.0); RED BLOOD COUNT 3.02 10^6/uL (4.30-6.10); WHITE BLOOD COUNT 1.9 10^3/uL (4.0-10.0)
[2019-10-17 12:55] LABS: PLATELET COUNT, AUTOMATED 35 10^3/uL (150-450)
[2019-10-17 13:28] LABS: BASOPHILS 1 % (0-1); EOSINOPHILS 7 % (0-3); LYMPHOCYTES 34 % (16-44); METAMYELOCYTES 21 % (0-0); MONOCYTES 1 % (0-5); MYELOCYTES 2 % (0-0); NEUTROPHILS 9 % (28-66); PLATELET ESTIMATE DECREASED (NORMAL)
== END ==
LOC: M LABDRWAD 12:25
PROVIDERS: ATTEND Internal Medicine Hematology & Oncology
DX: D46.Z Other myelodysplastic syndromes (principal)

== ENCOUNTER 2019-10-19 20:36 | Inpatient (IN) | payer MEDICARE, BC, OTHER ==
[~2019-10-19] VITALS: Ht 175.3 cm; Wt 88.0 kg
[2019-10-19] MEDS ORDERED: NS 1,000 ML IV ONE (21:00)
[2019-10-19] MEDS ORDERED: BREO1INH PO (21:17)
[2019-10-19] MEDS ORDERED: ALBU8.5H PO (21:17)
[2019-10-19] MEDS ORDERED: LEVO500T3 PO (21:17)
[2019-10-19] MEDS ORDERED: MONT10TA4 PO (21:17)
[2019-10-19] MEDS ORDERED: XARE20TA PO (21:17)
--- NOTE | 2019-10-19 21:40 | REPVR ---
PROCEDURE INFORMATION: Exam: CT Head Without Contrast Exam date and time: 10/19/2019 9:22 PM Age: 74 years old Clinical indication: Injury or trauma; Fall; Initial encounter; Blunt trauma (contusions or hematomas); Additional info: Recent fall, AMS TECHNIQUE: Imaging protocol: Computed tomography of the head without contrast. Radiation optimization: All CT scans at this facility use at least one of these dose optimization techniques: automated exposure control; mA and/or kV adjustment per patient size (includes targeted exams where dose is matched to clinical indication); or iterative reconstruction. COMPARISON: No relevant prior studies available. FINDINGS: Brain: There is no evidence of infarct, prajapati-white matter differentiation is preserved. There is no hemorrhage or extra-axial collection. There is no mass. Ventricles: There is no hydrocephalus. Bones/joints: Unremarkable. No acute fracture. Sinuses: There is a small right maxillary sinus retention cyst. No air-fluid levels. Mastoid air cells: Visualized mastoid air cells are well aerated. Soft tissues: Unremarkable. IMPRESSION: No intracranial injury or lesion. Electronically signed by: Sb Lee On 10/19/2019 21:39:53 PM
--- NOTE | 2019-10-19 21:46 | REPVR ---
PROCEDURE INFORMATION: Exam: CT Cervical Spine Without Contrast Exam date and time: 10/19/2019 9:22 PM Age: 74 years old Clinical indication: Injury or trauma; Fall; Initial encounter; Blunt trauma TECHNIQUE: Imaging protocol: Computed tomography images of the cervical spine without contrast. Radiation optimization: All CT scans at this facility use at least one of these dose optimization techniques: automated exposure control; mA and/or kV adjustment per patient size (includes targeted exams where dose is matched to clinical indication); or iterative reconstruction. COMPARISON: PT PET/CT Skull/mid thigh 01/25/2019 9:54 AM FINDINGS: Vertebrae: There is no fracture. There is mild C4-C5 retrolisthesis. Alignment is otherwise normal. Discs/Spinal canal/Neural foramina: There is spondylosis and disc space narrowing from C4-C5 to C6-C7 with posterior osteophytes and disc bulges. There is mild central stenosis at C5-C6. There is foraminal stenosis at multiple levels most severe bilaterally C5-C6 and on the left at C4-C5. Soft tissues: Unremarkable. Lungs: Lung apices are normal. IMPRESSION: 1. No fracture of the cervical spine. 2. Degenerative findings described above Electronically signed by: Sb Lee On 10/19/2019 21:46:18 PM
[2019-10-19 21:47] LABS: MEAN CORPUSCULAR HGB CONC 32.5 g/dl (32.0-36.5); MEAN CORPUSCULAR VOLUME 86.2 fl (80.0-96.0); RED BLOOD COUNT 2.39 10^6/uL (4.30-6.10); WHITE BLOOD COUNT 1.8 10^3/uL (4.0-10.0)
[2019-10-19 21:49] LABS: HEMATOCRIT 20.6 % (42.0-52.0); HEMOGLOBIN 6.7 g/dl (13.5-17.5); PLATELET COUNT, AUTOMATED 28 10^3/uL (150-450)
[2019-10-19 22:18] LABS: ALBUMIN 2.8 GM/DL (3.2-5.2); ALT/SGPT 30 U/L (12-78); BILIRUBIN,DIRECT 0.3 MG/DL (0.0-0.2); BILIRUBIN,TOTAL 0.6 MG/DL (0.2-1.0); BLOOD UREA NITROGEN 48 MG/DL (7-18); CALCIUM LEVEL 7.9 MG/DL (8.8-10.2); CARBON DIOXIDE LEVEL 24 MEQ/L (21-32); CHLORIDE LEVEL 101 MEQ/L (98-107); CK-MB VALUE MASS < 1.0 NG/ML (<3.6); CPK CREATINE PHOSPHOKINASE 38 U/L (39-308); GLOMERULAR FILTRATION RATE 18.2 (>42); GLUCOSE, FASTING 102 MG/DL (70-100); LIPASE 69 U/L (73-393); MAGNESIUM LEVEL 2.3 MG/DL (1.8-2.4); MB/CK RELATIVE INDEX 2.63 (< OR =4); POTASSIUM SERUM 4.2 MEQ/L (3.5-5.1); SODIUM LEVEL 135 MEQ/L (136-145); TOTAL PROTEIN 5.9 GM/DL (6.4-8.2)
--- NOTE | 2019-10-19 22:44 | REPVR ---
PROCEDURE INFORMATION: Exam: CT Abdomen And Pelvis Without Contrast Exam date and time: 10/19/2019 10:29 PM Age: 74 years old Clinical indication: Abdominal pain; Generalized; Additional info: Abd pain, anemia TECHNIQUE: Imaging protocol: Computed tomography of the abdomen and pelvis without contrast. Radiation optimization: All CT scans at this facility use at least one of these dose optimization techniques: automated exposure control; mA and/or kV adjustment per patient size (includes targeted exams where dose is matched to clinical indication); or iterative reconstruction. COMPARISON: CT ABD PELVIS WITH CONTRAST 05/12/2019 10:19 AM FINDINGS: Liver: There is a small, 12 mm hepatic lucency. Density measurements are consistent with a simple cyst within the limits of a noncontrast scan. No change from prior scan. The liver is otherwise normal. Gallbladder and bile ducts: The gallbladder is normal. Pancreas: The pancreas is normal. Spleen: There is a calcified splenic granuloma. The spleen is otherwise normal. Adrenals: The adrenal glands are normal. Kidneys and ureters: There is a small nonobstructive right renal calculus. There is a right renal exophytic cyst measuring up to 7.5 centimetres. This is a simple cyst within the limits of a noncontrast scan and is stable compared with the prior scan. There are smaller right renal hypodensities also probably cysts. There is severe left renal atrophy and a small left renal cyst. There is streaky density in the perinephric fat at the lower pole of the left kidney which was also present on the prior scan. Therefore it is not consistent with acute hemorrhage. No significant change from the prior scan. No hydronephrosis. Stomach and bowel: Unremarkable. No obstruction. No mucosal thickening. Appendix: The appendix is normal. Intraperitoneal space: There is no free fluid or fluid collection. There is no free air. Vasculature: Unremarkable. No abdominal aortic aneurysm. Lymph nodes: Unremarkable. No enlarged lymph nodes. Bladder: The bladder is normal with no evidence of calculi. Reproductive: The prostate is enlarged measuring 5.5 cm in diameter. Bones/joints: There are degenerative changes of the spine. No fracture. There is severe degenerative disease of the right hip with complete loss of superior joint space. No change from prior scan. Soft tissues: Unremarkable. IMPRESSION: No acute findings. Severe left renal atrophy. There is heterogeneous appearance of the lower pole with streaky density in the adjacent perinephric fat unchanged from prior scan. Given the stability in appearance this is not consistent with acute hemorrhage or inflammation. It may indicate or chronic inflammation. There is a history of lymphoma an this could represent residual lymphoma. Electronically signed by: Sb Lee On 10/19/2019 22:44:30 PM
[2019-10-19 22:49] LABS: APPEARANCE, URINE CLOUDY (CLEAR); BACTERIA, URINE AUTO 1+ (NEGATIVE); BILIRUBIN, URINE AUTO NEGATIVE (NEGATIVE); BLOOD, URINE BLOOD NEGATIVE (NEGATIVE); COLOR, URINE AMBER (YELLOW); GLUCOSE, URINE (UA) AUTO NEGATIVE (NEGATIVE); KETONE, URINE AUTO NEGATIVE (NEGATIVE); LEUKOCYTE ESTERASE, URINE AUTO NEGATIVE (NEGATIVE); MUCUS, URINE SMALL (NEGATIVE); NITRITE, URINE AUTO NEGATIVE (NEGATIVE); PROTEIN, URINE AUTO NEGATIVE (NEGATIVE); RBC, URINE AUTO 3 /HPF (0-3); SPECIFIC GRAVITY URINE AUTO 1.016 (1.002-1.035); SQUAMOUS EPITHELIAL CELL UR AU 0 /HPF (0-6); UROBILINOGEN, URINE AUTO 0.2 mg/dL (0.0-2.0); WBC, URINE AUTO 3 /HPF (0-3)
[2019-10-19] MEDS ORDERED: LR 1,000 ML IV ONE (23:15)
[2019-10-19] MEDS ORDERED: ACETAMINOPHEN TAB 650MG DOSE (2X325MG) PO PRN (23:15)
[2019-10-19 23:16] LABS: ATYPICAL LYMPH 2 % (0-5); BASOPHILS 2 % (0-1); EOSINOPHILS 5 % (0-3); GIANT PLATELETS 1+; LYMPHOCYTES 37 % (16-44); METAMYELOCYTES 10 % (0-0); MYELOCYTES 3 % (0-0); NEUTROPHILS 34 % (28-66); PLATELET ESTIMATE MARKED DECREASE (NORMAL)
[2019-10-19 23:17] LABS: ANISOCYTOSIS 2+; OVALOCYTES 1+
[2019-10-19 23:19] LABS: POIKILOCYTOSIS 1+
[2019-10-19] MEDS ORDERED: VITMTA PO (23:21)
[2019-10-19] MEDS ORDERED: LOSA100T50 PO (23:21)
[2019-10-19] MEDS ORDERED: COQ1100C4 PO (23:21)
[2019-10-19] MEDS ORDERED: SIMV40TA20 PO (23:21)
[2019-10-19 23:46] LABS: VENOUS BASE EXCESS -5.6 (-2.0-2.0); VENOUS HCO3 20.2 MEQ/L (23.0-27.0); VENOUS O2 SATURATION 58.5 % (60.0-80.0); VENOUS PARTIAL PRESSURE CO2 41.5 mmHg (38.0-50.0); VENOUS PARTIAL PRESSURE O2 35.2 mmHg (30.0-50.0); VENOUS PH 7.306 UNITS (7.330-7.430); VENOUS STANDARD HCO3 19.3 MEQ/L; VENOUS TOTAL CO2 21.5 MEQ/L (24.0-28.0)
[2019-10-19 23:56] VITALS: BP 104/60
[2019-10-20] VITALS (20 sets, daily range): BP systolic 88–121; BP diastolic 48–73
--- NOTE | 2019-10-20 00:33 | REPVR ---
PROCEDURE INFORMATION: Exam: US Retroperitoneal Limited, Kidneys Exam date and time: 10/19/2019 12:21 AM Age: 74 years old Clinical indication: Condition or disease; Kidney or ureter condition; Acute renal insufficiency; Additional info: John TECHNIQUE: Imaging protocol: Real-time ultrasound of the retroperitoneum with image documentation. Examination was focused on the kidneys. COMPARISON: RENAL US 02/18/2017 1:59 PM FINDINGS: Right kidney: Right kidney measures 10.1 cm. Normal echotexture and cortical thickness. 1.9 cm cyst in the mid right kidney. Exophytic cyst along the upper pole of the right kidney measuring 6.8 cm. No hydronephrosis. Left kidney: Left kidney measures 7.2 cm. Kidney is small and echogenic with cortical thinning. Two cysts in the mid left kidney measuring 1.5 cm. No hydronephrosis. Bladder: Urinary bladder volume measures 51 mL. Bladder is grossly unremarkable. IMPRESSION: 1. Small echogenic left kidney suggesting chronic medical renal disease or prior renal insult. 2. Small cysts in both kidneys and large exophytic simple cyst in the right renal upper pole. 3. No hydronephrosis. Electronically signed by: Louie Alcantar On 10/20/2019 00:33:10 AM
[2019-10-20] MEDS ORDERED: LR 1,000 ML IV ONE (00:45)
[2019-10-20 01:06] LABS: OSMOLALITY URINE 365 MOSM/KG (500-800)
[2019-10-20 01:10] LABS: POTASSIUM RANDOM URINE 61.1 MEQ/L; SODIUM,RANDOM URINE < 10 MEQ/L
[2019-10-20] MEDS ORDERED: ENTER DRUG NAME HERE (PATIENT'S OWN MED) INH SCH (02:00)
[2019-10-20] MEDS ORDERED: ALBUTEROL 90 MCG/ACT 8GM HFA INHALER INH PRN (02:00)
[2019-10-20] MEDS: MONTELUKAST 10 MG TAB PO SCH ×2 (03:14→21:00)
--- NOTE | 2019-10-20 04:59 | HPEPDOC ---
[facility] Medical History & Physical Date of Admission Oct 19, 2019 Date of Service: Oct 19, 2019 Primary Care Physician: Sunny Johnson Attending Physician: CHA ROSE MD History and Physical TIME OF SERVICE: 11:45 PM CHIEF COMPLAINT: Fall HISTORY OF PRESENT ILLNESS: This is a 74-year-old gentleman came to the ER for evaluation after having a fall today. He thought this was abnormal because he "has a good sense of balance". He did not report falling, but per Dr. Kendall, there is suspicion that he may have had a syncopal episode. The patient also admits to "almost losing" his balance yesterday. He reports feeling well except for having an episode of nonbloody emesis a few days ago. He denies having fevers, chills, diarrhea, dizziness, blurred vision, chest pain, palpitations, or shortness of breath. He lasts attended his oncologist clinic in [place] last Thursday for a blood transfusion. He reports completed a course of antibiotics ( levofloxacin) which was prescribed by his doctor in [place] about 2 weeks ago; he is not sure why he was given the antibiotic. 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 Left kidney atrophy Tonsillectomy SOCIAL HISTORY: He quit smoking He no longer drinks alcohol He denies a history of recreational drug use FAMILY HISTORY: Father had prostate cancer, skin cancer and CAD Mother had dementia Sister has Down syndrome ALLERGIES: Please see below HOME MEDICATIONS: Please see below. PHYSICAL EXAMINATION: Vital Signs Date Time Temp Pulse Resp B/P (MAP) Pulse Ox O2 Delivery O2 Flow Rate FiO2 10/19/19 20:44 97.0 73 24 88/49 98 Room Air GEN: well-nourished / well developed/ NAD INTEGUMENT: Slightly flushed/ has purpura on the dorsal surface of his hands and lower arms HEENT: NCAT / lips acyanotic CVS: RRR/NMRG/ intact / no lower extremity edema LUNGS: / no coughing / lungs are clear to auscultation bilaterally on room air ABDOMEN: Contour (obese) / soft & not tender with palpation MSK/EXTREMITIES: range of motion intact in all 4 extremities NEURO: CN 2-12 are grossly intact / speech is not dysarthric PSYCH: alert and oriented to person place and time/ able to understand and follow all commands LABORATORY DATA: Immature Granulocyte % (Auto) , Neutrophils (%) (Auto) , Neutrophils # (Auto) , Nucleated Red Blood Cells % (auto) 1.1H, Neutrophils 34, Band Neutrophils 7, Lymphocytes (Manual) 37, Eosinophils (Manual) 5H, Basophils (Manual) 2H, Metamyelocytes 10H, Myelocytes 3H, Atypical Lymphocytes 2, Poikilocytosis 1+, Anisocytosis 2+, Ovalocytes 1+, Giant Platelets 1+, Platelet Estimate MARKED DECREASE, Immature Platelet Fraction 39.5H, Lactic Acid Level 1.2 Anion Gap 10, Glomerular Filtration Rate 18.2L, Calcium Level 7.9L, Magnesium Level 2.3, Total Bilirubin 0.6, Direct Bilirubin 0.3H, Aspartate Amino Transf (AST/SGOT) 21, Alanine Aminotransferase (ALT/SGPT) 30, Alkaline Phosphatase 72, Total Creatine Kinase 38L, Creatine Kinase MB < 1.0, Creatine Kinase MB Relative Index 2.63, Troponin I 0.30H, Total Protein 5.9L, Albumin 2.8L, Albumin/Globulin Ratio 0.90L, Lipase 69L, Thyroid Stimulating Hormone (TSH) 2.860 Urine Color ROHAN, Urine Appearance CLOUDYH, Urine pH 5.0, Urine Specific Buchanan 1.016, Urine Protein NEGATIVE, Urine Glucose (Auto)(UA) NEGATIVE, Urine Ketones (Auto) NEGATIVE, Urine Blood NEGATIVE, Urine Nitrite NEGATIVE, Urine Bilirubin NEGATIVE, Urine Urobilinogen 0.2, Urine Leukocyte Esterase (Auto) NEGATIVE, Urine WBC (Auto) 3, Urine RBC (Auto) 3, Urine Hyaline Casts (Auto) 1, Urine Bacteria (Auto) 1+H, Urine Squamous Epithelial Cells 0, Urine Mucus (Auto) SMALL, Urine Sperm (Auto) , IMAGING: CT head "IMPRESSION: No intracranial injury or lesion. " CT cervical spine "IMPRESSION: 1. No fracture of the cervical spine. 2. Degenerative findings described above" CT abdomen and pelvis "IMPRESSION: No acute findings. Severe left renal atrophy. There is heterogeneous appearance of the lower pole with streaky density in the adjacent perinephric fat unchanged from prior scan. Given the stability in appearance this is not consistent with acute hemorrhage or inflammation. It may indicate or chronic inflammation. There is a history of lymphoma an this could represent residual lymphoma. " MICROBIOLOGY: 10/19/19 Blood Culture, Received Pending 10/19/19 Blood Culture, Received Pending ASSESSMENT: Mr. Kendall is a 74 old with a history of MDS with excess blasts, history of follicular non-Hodgkin's lymphoma, history of papillary bladder cancer, PE, chronic issue, COPD, and CKD 3 who is admitted for management of symptomatic anemia, orthostatic hypotension, SIRS and DAYNE. PLAN: 1. Pancytopenia with Symptomatic anemia The patient has a history of MDS and chronically low WBC count and platelets. Today his hemoglobin is below baseline. 2 units of PRBCs have ready been ordered Plan: Admit to PCU/follow-up serial hemoglobin / f/u differential to calculate ANC / iron panel, B12, RBC folate and reticulocyte count/the daytime team can consult Hematology in the morning / check stool occult/hold Xarelto 2. Presyncope vs syncope 2/2 Hypotension. He has chronic HTN at his baseline Arrival, his blood pressure was 88/49. He denies eating less than usual, except for missing dinner, and denies having nausea, vomiting or diarrhea Plan: Give additional IV fluids/check orthostatics/hold losartan/fall precautions 3.SIRS cause TBD SIRS criteria include WBC <4 / RR >20 Lactic acid >2 His BP is still low after 1 L of IVF Plan: telemetry / he is on prophylactic abx bc of the neutropenia / switch to lactate ringers and give 2 more L bolus / f/u blood cx, VBG,/ Acetaminophen PRN for fever / target MAP 65 to 70/ f/u Is and Os with target UOP of atleast 0.5 ml/kg/H / target serum glucose 140-180 while acutely ill 4. Acute Renal Failure on CKD 3 DAYNE is likely pre-renal His baseline creatinine is 1.8 to but has increased to 3.5 today Plan: Is/Os,/ IVF / f/u ulytes for FENa or FEUrea / losartan is on hold 5. Hx of Follicular non-Hodgkin's lymphoma -f/u w primary team as scheduled 6. Hx of Noninvasive papillary Bladder cancer, status post TURP in remission - f/u w primary team as scheduled 7. Pulmonary emboli April 2019 - hold xarelto bc of low Hg and Plts 8. COPD -Duonebs NM DVT PROPHYLAXIS: SCDs bc of acute anemia DISPOSITION: likely home after more than 2 midnight's stay LATE ENTRY #Severe Neutropenia His calculated ANC is approximately 126 Plan: Neupogen /neutropenic precautions with neutropenic diet / will start prophylactic Levofloxacin / the day time team can consult the Oncologist manager consumer insights to discuss further management Home Medications Scheduled Fluticasone/Vilanterol (Breo Ellipta 100-25 Mcg INH) 1 Each Blst.w.dev, 1 PUFF PO QHS Gluc Mariano/Chondro Mariano A/Vit C/Mn (Glucosamine-Chondroitin Cap) 1 Cap Cap, 2 CAP PO QHS Losartan Potassium (Losartan Potassium) 100 Mg Tablet, 50 MG PO DAILY Montelukast Sodium (Montelukast Sodium) 10 Mg Tablet, 10 MG PO QHS Multivitamins (Thera M Plus Tablet) 1 Each Tablet, 1 TAB PO QHS Rivaroxaban (Xarelto) 20 Mg Tablet, 20 MG PO QHS Simvastatin (Simvastatin) 40 Mg Tablet, 40 MG PO QHS Ubidecarenone (Co Q-10) 100 Mg Capsule, 100 MG PO QHS Scheduled PRN Albuterol Sulfate (Albuterol Sulfate Hfa) 8.5 Gm Hfa.aer.ad, 2 PUFFS PO Q4H PRN for SHORTNESS OF BREATH Allergies Coded Allergies: No Known Allergies (Unverified , 06/10/17) A-FIB/CHADSVASC A-FIB History Current/History of A-Fib/PAF?: No Current PO Anticoag Therapy: No CHA ROSE MD Oct 20, 2019 04:59
[2019-10-20] MEDS ORDERED: LR 1,000 ML IV SCH (05:15)
[2019-10-20] MEDS ORDERED: LevoFLOXacin IV 500 MG in IV 1 EA IV ONE (06:00)
[2019-10-20] MEDS: FILGRASTIM 300 MCG/0.5 ML SYRINGE (J1442 PER 1MCG) SC SCH (06:26)
[2019-10-20 06:36] LABS: HEMATOCRIT 23.1 % (42.0-52.0); HEMOGLOBIN 7.8 g/dl (13.5-17.5); MEAN CORPUSCULAR HEMOGLOBIN 28.8 pg (27.0-33.0); MEAN CORPUSCULAR HGB CONC 33.8 g/dl (32.0-36.5); MEAN CORPUSCULAR VOLUME 85.2 fl (80.0-96.0); RED BLOOD COUNT 2.71 10^6/uL (4.30-6.10); WHITE BLOOD COUNT 1.6 10^3/uL (4.0-10.0)
[2019-10-20 06:49] LABS: PLATELET COUNT, AUTOMATED 24 10^3/uL (150-450)
[2019-10-20 07:07] LABS: BLOOD UREA NITROGEN 53 MG/DL (7-18); CALCIUM LEVEL 7.3 MG/DL (8.8-10.2); CARBON DIOXIDE LEVEL 23 MEQ/L (21-32); CHLORIDE LEVEL 105 MEQ/L (98-107); CK-MB VALUE MASS < 1.0 NG/ML (<3.6); CPK CREATINE PHOSPHOKINASE 75 U/L (39-308); CREATININE FOR GFR 3.12 MG/DL (0.70-1.30); GLOMERULAR FILTRATION RATE 20.8 (>42); GLUCOSE, FASTING 110 MG/DL (70-100); MB/CK RELATIVE INDEX 1.33 (< OR =4); POTASSIUM SERUM 4.4 MEQ/L (3.5-5.1); SODIUM LEVEL 136 MEQ/L (136-145); TROPONIN I 0.13 NG/ML (< 0.10)
--- NOTE | 2019-10-20 08:19 | REP ---
Portable chest x-ray: Single view. History: Acute kidney injury. Findings: Monitoring electrodes are seen. Lungs are symmetrically aerated and free of infiltrate. Pleural angles are sharp. Cardiomediastinal silhouette and bony thorax are unremarkable. Impression: No acute disease. Electronically Signed by Obinna Hawkins MD 10/20/2019 08:09 A
[2019-10-20] MEDS: ADVAIR HFA 115/21MCG INHALER INH SCH ×2 (09:45→20:44)
[2019-10-20] MEDS: DOCUSATE SODIUM 100 MG CAP PO SCH ×2 (09:53→21:01)
[2019-10-20] MEDS: NS 1,000 ML IV SCH ×2 (12:03→18:58)
[2019-10-20 14:34] LABS: HEMATOCRIT 22.3 % (42.0-52.0); HEMOGLOBIN 7.6 g/dl (13.5-17.5); MEAN CORPUSCULAR HEMOGLOBIN 28.9 pg (27.0-33.0); MEAN CORPUSCULAR HGB CONC 34.1 g/dl (32.0-36.5); MEAN CORPUSCULAR VOLUME 84.8 fl (80.0-96.0); RED BLOOD COUNT 2.63 10^6/uL (4.30-6.10); WHITE BLOOD COUNT 1.5 10^3/uL (4.0-10.0)
[2019-10-20 14:39] LABS: PLATELET COUNT, AUTOMATED 20 10^3/uL (150-450)
[2019-10-20 15:13] LABS: ANISOCYTOSIS 2+; ATYPICAL LYMPH 6 % (0-5); BASOPHILS 2 % (0-1); EOSINOPHILS 10 % (0-3); LYMPHOCYTES 16 % (16-44); METAMYELOCYTES 12 % (0-0); NEUTROPHILS 30 % (28-66); OVALOCYTES 1+; POIKILOCYTOSIS 1+
[2019-10-20 15:15] LABS: PLATELET ESTIMATE MARKED DECREASE (NORMAL)
--- NOTE | 2019-10-20 18:41 | IPNPDOC ---
Text Note Date of Service The patient was seen on 10/20/19. NOTE S: Pt examined at bedside. Feels better and has no complaints this am. Is unsure how he fell. No cp, sob, n/v/lightheaded/dizzy/pain. Blood levels slightly improving. PE: Vitals: see below General: NAD, A&Ox3, resting comfortably HEENT: NCAT, EOMI, anicteric sclera, MMM CV: RRR, no murmurs or clicks or rub. No edema RESP: CTAB, no w/r/r/ ABD: soft, NT, ND. Benign EXTREMITIES: 2+ radial pulses b/l, able to move all extremities NEURO: no focal deficits or acute changes A/P: 1. Fall - possibly 2/2 syncope 2/2 symptomatic anemia - pt unsure how he fell. Denies loss of consciousness or any sx prior to fall - no complaints of pain. Imaging neg for fracture or bleed - hemodynamically stable - may be 2/2 to low H&H 6.7 or low bp noted on admission - 4U PRBC ordered and IVF - on fall precautions, PT/OT, tele 2. Symptomatic anemia in pancytopenia - pt denies blood loss or any symptoms - no overt bleed - Hgb mildly improved s/p 2U PRBC - likely 2/2 baseline MDS - 2 additional PRBC ordered, total of 4 - trend CBC, transfuse platelets with PRBC if no improvement 3. Hypotension in setting of HTN - 70s/40s on admission - feeling better with bp up in 100s/50s - encourage po intake and continue IVF - hold antihypertensives 4. Borderline fevers - pt denies all complaints - no true fever at this point - source unclear, possibly reactionary and 2/2 baseline MDS - blood cultures pending, imaging neg - monitor on Levaquin given his baseline neutropenia 5. DAYNE on CKD III - likely prerenal from hypotension - hold nephrotoxins, continue IVF 6. Acquired Myelodysplastic Syndrome - transfuse as above - ANC 738 = moderate neutropenia - started on Neuopogen, trend levels - o/p f/u Hx of Follicular non-Hodgkin's lymphoma - dx'd 2012 with recurrence in 2016 - o/p f/u Hx Noninvasive papillary Bladder cancer - status post TURP in remission Hx of Pulmonary emboli - April 2019 - no pulm complaints, stable - Xarelto on hold given thrombocytopenia Hx of Squamous cell carcinoma - of nose, s/p excision Dyslipidemia - on statin COPD - stable, breathing at baseline RA - continue nebs DVT ppx: mechanical DISPO: pending transfusions, PT/OT. D/C home 24-72 hrs. VS,Fishbone, I+O VS, Fishbone, I+O Laboratory Tests 10/19/19 21:31 10/19/19 21:33 10/19/19 23:39 10/20/19 06:14 10/20/19 14:18 Vital Signs Date Time Temp Pulse Resp B/P (MAP) Pulse Ox O2 Delivery O2 Flow Rate FiO2 10/20/19 17:45 100.0 99 22 108/55 94 Room Air I&O- Last 24 Hours up to 6 AM 10/20/19 05:59 Intake Total 1800 ml Output Total 60 ml Balance 1740 ml GME ATTESTATION GME ATTESTATION My faculty preceptor for this patient encounter was physically present during the encounter and was fully available. All aspects of the patient interview, examination, medical decision making process, and medical care plan development were reviewed and approved by the faculty preceptor. The faculty preceptor is aware and concurs with the plan as stated in the body of this note and will attest to such by his/her cosignature. ATTENDING NOTE I, Esthela Coyne, have independently examined this patient and performed my own physical exam, as well as reviewed the documentation and edited where necessary. I have discussed in detail with the resident / student the findings and plan of treatment as documented by the resident / student and edited their note. I agree with their findings and treatment plan and have edited their documentation. I will continue to follow the patient during this hospital stay. KAYLIE ABEL DO Oct 20, 2019 18:41 ESTHELA COYNE MD Oct 20, 2019 21:56
[2019-10-20 20:59] LABS: HEMATOCRIT 26.4 % (42.0-52.0); MEAN CORPUSCULAR HEMOGLOBIN 28.8 pg (27.0-33.0); MEAN CORPUSCULAR HGB CONC 34.1 g/dl (32.0-36.5); MEAN CORPUSCULAR VOLUME 84.3 fl (80.0-96.0); RED BLOOD COUNT 3.13 10^6/uL (4.30-6.10); WHITE BLOOD COUNT 1.7 10^3/uL (4.0-10.0)
[2019-10-20 21:14] LABS: PLATELET COUNT, AUTOMATED 20 10^3/uL (150-450)
[2019-10-21] VITALS: BP 131/60
[2019-10-21 04:00] VITALS: BP 122/64
[2019-10-21] MEDS: NS 1,000 ML IV SCH ×2 (04:00→11:01)
[2019-10-21 05:25] LABS: HEMATOCRIT 27.3 % (42.0-52.0); HEMOGLOBIN 9.2 g/dl (13.5-17.5); MEAN CORPUSCULAR HEMOGLOBIN 28.8 pg (27.0-33.0); MEAN CORPUSCULAR HGB CONC 33.7 g/dl (32.0-36.5); MEAN CORPUSCULAR VOLUME 85.3 fl (80.0-96.0); WHITE BLOOD COUNT 1.4 10^3/uL (4.0-10.0)
[2019-10-21 05:31] LABS: PLATELET COUNT, AUTOMATED 18 10^3/uL (150-450)
[2019-10-21 05:43] LABS: CALCIUM LEVEL 7.4 MG/DL (8.8-10.2); CREATININE FOR GFR 1.94 MG/DL (0.70-1.30)
[2019-10-21 05:57] LABS: ANISOCYTOSIS 1+; ATYPICAL LYMPH 1 % (0-5); BASOPHILS 4 % (0-1); EOSINOPHILS 4 % (0-3); LYMPHOCYTES 19 % (16-44); METAMYELOCYTES 13 % (0-0); MONOCYTES 4 % (0-5); MYELOCYTES 7 % (0-0); NEUTROPHILS 31 % (28-66); OVALOCYTES 1+; PLATELET ESTIMATE MARKED DECREASE (NORMAL)
[2019-10-21 05:58] LABS: POLYCHROMASIA 1+
[2019-10-21] MEDS: ADVAIR HFA 115/21MCG INHALER INH SCH (07:13)
[2019-10-21 08:00] VITALS: BP 133/75
[2019-10-21] MEDS: DOCUSATE SODIUM 100 MG CAP PO SCH ×2 (09:00→09:15)
[2019-10-21] MEDS: FILGRASTIM 300 MCG/0.5 ML SYRINGE (J1442 PER 1MCG) SC SCH (11:02)
[2019-10-21 12:00] VITALS: BP 112/56
--- NOTE | 2019-10-21 12:22 | ECGEPIP ---
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
[2019-10-21] MEDS ORDERED: LEVO750T13 PO (14:15)
[2019-10-22] MEDS ORDERED: LevoFLOXacin IV 250 MG in IV 1 EA IV SCH (06:00)
--- NOTE | 2019-10-22 18:22 | DS.PDOC ---
Discharge Summary General Date of Admission Oct 19, 2019 at 23:08 Date of Discharge 10/21/19 Primary Care Physician: Sunny Johnson Attending Physician: ESTHELA UREÑA MD Discharge Summary PROCEDURES PERFORMED DURING STAY: None. DISCHARGE DIAGNOSES: 1. Fall - possibly 2/2 syncope 2/2 symptomatic anemia 2. Symptomatic anemia in pancytopenia 3. Hypotension in setting of HTN 4. Borderline fevers 5. DAYNE on CKD III 6. Troponin leak likely 2/2 severe anemia & hypotension 7. Acquired Myelodysplastic Syndrome 8. Hx Noninvasive papillary Bladder cancer s/p TURP in remission 9. Hx of Pulmonary emboli in 2019, on Xarelto 10. Hx of Squamous cell carcinoma 11. Dyslipidemia 12. COPD on room air 13. Hx of Follicular non-Hodgkin's lymphoma dx'd 2012, recurrence 2015 HISTORY OF PRESENT ILLNESS: 74-year-old male presented after he sustained a fall. He is unsure when he fell, but after discussions with his , it appears his legs felt weak and just gave out. The fall was witnessed by the . Patient denied any syncope or any symptoms prior to the fall. Denies hitting his head. Was found to be hypotensive 70s over 40s on admission that improved with IV fluids, and also hemoglobin 6.7 on admission. HOSPITAL COURSE: Patient was admitted, given IV fluids with positive response in blood pressure and symptoms, and home antihypertensives were held. Imaging was negative for any fractures or bleeds. He was consented for blood and transfused total of 4 units PRBC, after which his H&H remained stable and he felt much improved with Hgb back to 9. Xarelto was held. There was no acute bleed noted. Anemia workup revealed anemia of chronic disease with iron 17, ferritin 2122, TIBC 142. Platelets were as low as 20s. Given his baseline myelodysplastic syndrome, however were stable without any indication or requirement of transfusions of platelets. His ANC on admission was 738 suggesting moderate neutropenia, he was given Neupogen. Also was noted to have prerenal DAYNE with creatinine 3.12, which significantly improved to 1.94 upon discharge S/P IV fluids, blood transfusion, resolution of hypotension. Of note, also had borderline fevers around 100, no clear source of infection. Blood cultures and imaging were negative. Was started on Levaquin, which he is discharged with. He also was found to have a troponin of 0.3 on admission, down trending to 0.13 upon recheck 6 hours later. He had no cardiac complaints and no anginal equivalents. This was likely 2/2 his severe anemia and hypotension. He remained hemodynamically stable and worked with PT/OT and deemed to be functionally at his baseline. He felt back to his normal self and much improved requesting to go home. He is encouraged to stay hydrated and have good oral intake. On discharge: Stop losartan. Continue Levaquin. DISCHARGE MEDICATIONS: Please see below. ALLERGIES: Please see below. PHYSICAL EXAMINATION ON DISCHARGE: VITAL SIGNS: Please see below. GENERAL: NAD, A&Ox3 HEENT: nc, at, EOMI NECK: supple, no JVD CARDIOVASCULAR EXAMINATION: RRR, normal S1 S2 RESPIRATORY EXAMINATION: CTAB, no w/r/r ABDOMINAL EXAMINATION: soft, nt/nd, normoactive bowel sounds EXTREMITIES: 2+ pulses b/l, no cyanosis or edema SKIN: no visible rash or lesions, warm, dry NEUROLOGICAL EXAMINATION: no focal deficits, able to move all extremities LABORATORY DATA: Please see below. IMAGING: * 10/19/2019 CXR: No acute disease. * 10/19/[address]: No intracranial injury or lesion. * 10/19/2019 CT cervical spine: 1. No fracture of the cervical spine. 2. Degenerative findings described above * 10/19/2019 CT abdomen and pelvis: No acute findings. Severe left renal atrophy. There is heterogeneous appearance of the lower pole with streaky density in the adjacent perinephric fat unchanged from prior scan. Given the stability in appearance this is not consistent with acute hemorrhage or inflammation. It may indicate or chronic inflammation. There is a history of lymphoma an this could represent residual lymphoma. * 10/19/2019 renal ultrasound: 1. Small echogenic left kidney suggesting chronic medical renal disease or prior renal insult. 2. Small cysts in both kidneys and large exophytic simple cyst in the right renal upper pole. 3. No hydronephrosis. PROGNOSIS: fair ACTIVITY: As tolerated. DIET: As tolerated. DISPOSITION: home DISCHARGE INSTRUCTIONS: 1. Follow-up with PCP within a week 2. Return to ER for emergency 3. Stay hydrated & have good intake DISCHARGE CONDITION: Stable. TIME SPENT ON DISCHARGE: Greater than 35 minutes. Vital Signs/I&Os Vital Signs Date Time Temp Pulse Resp B/P (MAP) Pulse Ox O2 Delivery O2 Flow Rate FiO2 4/10/20 12:00 97.1 112 83 112/56 (74) 95 Room Air I&O- Last 24 Hours up to 6 AM 10/22/19 06:00 Intake Total 1630 ml Output Total 175 ml Balance 1455 ml Laboratory Data Labs 24H Laboratory Tests 2 10/22/19 10:01: Lab Scanned Report Transfusion Record Microbiology Microbiology 10/19/19 Blood Culture - Preliminary, Resulted No Growth after 48 hours. All Specime... 10/19/19 Blood Culture - Preliminary, Resulted No Growth after 48 hours. All Specime... Discharge Medications Scheduled Fluticasone/Vilanterol (Breo Ellipta 100-25 Mcg INH) 1 Each Blst.w.dev, 1 PUFF PO QHS, (Reported) Gluc Mariano/Chondro Mariano A/Vit C/Mn (Glucosamine-Chondroitin Cap) 1 Cap Cap, 2 CAP PO QHS, (Reported) Levofloxacin (Levofloxacin) 750 Mg Tablet, 1 TAB PO Q2D Montelukast Sodium (Montelukast Sodium) 10 Mg Tablet, 10 MG PO QHS, (Reported) Multivitamins (Thera M Plus Tablet) 1 Each Tablet, 1 TAB PO QHS, (Reported) Rivaroxaban (Xarelto) 20 Mg Tablet, 20 MG PO QHS, (Reported) Simvastatin (Simvastatin) 40 Mg Tablet, 40 MG PO QHS, (Reported) Ubidecarenone (Co Q-10) 100 Mg Capsule, 100 MG PO QHS, (Reported) Scheduled PRN Albuterol Sulfate (Albuterol Sulfate Hfa) 8.5 Gm Hfa.aer.ad, 2 PUFFS PO Q4H PRN for SHORTNESS OF BREATH, (Reported) Allergies Coded Allergies: No Known Allergies (Unverified , 06/10/17) GME ATTESTATION GME ATTESTATION My faculty preceptor for this patient encounter was physically present during the encounter and was fully available. All aspects of the patient interview, examination, medical decision making process, and medical care plan development were reviewed and approved by the faculty preceptor. The faculty preceptor is aware and concurs with the plan as stated in the body of this note and will attest to such by his/her cosignature. ATTENDING NOTE I, Esthela Ureña, have independently examined this patient and performed my own physical exam, as well as reviewed the documentation and edited where necessary. I have discussed in detail with the resident / student the findings and plan of treatment as documented by the resident / student and edited their note. I agree with their findings and treatment plan and have edited their documentation. I will continue to follow the patient during this hospital stay. Time spent on discharge 35 minutes KAYLIE ABEL DO Oct 22, 2019 18:22 ESTHELA UREÑA MD Oct 24, 2019 17:24
== END 2019-10-21 17:30 | disposition home or self-care (01) | DRG 809 ==
LOC: M ED 20:56 → M ED INP 23:08 → ENRESERVTM 23:30 → ENRESERVDT 23:30 → ENRESERVTM 10-20 00:21 → M PCU 10-20 01:15
PROVIDERS: ADMIT Internal Medicine; ATTEND Internal Medicine
PROC: 30233N1 Transfusion of Nonautologous Red Blood Cells into Peripheral Vein, Percutaneous Approach (ICD-10-PCS; principal; 2019-10-19)
DX: D61.818 Other pancytopenia (principal); N17.9 Acute kidney failure, unspecified; D46.Z Other myelodysplastic syndromes; I12.9 Hypertensive chronic kidney disease with stage 1 through stage 4 chronic kidney disease, or unspecified chronic kidney disease; R55 Syncope and collapse; E78.5 Hyperlipidemia, unspecified; J44.9 Chronic obstructive pulmonary disease, unspecified; H91.93 Unspecified hearing loss, bilateral; I95.9 Hypotension, unspecified; Z97.4 Presence of external hearing-aid; Z85.828 Personal history of other malignant neoplasm of skin; Z86.711 Personal history of pulmonary embolism; Z87.442 Personal history of urinary calculi; Z86.010 Personal history of colon polyps; Z85.51 Personal history of malignant neoplasm of bladder; Z87.891 Personal history of nicotine dependence; Z85.79 Personal history of other malignant neoplasms of lymphoid, hematopoietic and related tissues; Z79.01 Long term (current) use of anticoagulants; Z79.899 Other long term (current) drug therapy

== ENCOUNTER → 2019-10-27 | Outpatient (REF) | payer MEDICARE, OTHER ==
[~2019-10-27] MED LIST changes: +ALBU8.5H PO; +BREO1INH PO; +COQ1100C4 PO; +LEVO500T3 PO; +LEVO750T13 PO; +LOSA100T50 PO; +MONT10TA4 PO; +SIMV40TA20 PO; +VITMTA PO; +XARE20TA PO
[2019-10-27 13:20] LABS: BASO % 2.2 % (0.0-1.0); EOS # 0.1 10^3/uL (0.0-0.5); EOS % 6.7 % (0.0-3.0); HEMATOCRIT 29.3 % (42.0-52.0); HEMOGLOBIN 9.5 g/dl (13.5-17.5); LYMPH # 0.3 10^3/uL (1.5-5.0); MEAN CORPUSCULAR HEMOGLOBIN 29.1 pg (27.0-33.0); MEAN CORPUSCULAR HGB CONC 32.4 g/dl (32.0-36.5); MEAN CORPUSCULAR VOLUME 89.9 fl (80.0-96.0); MONO % 4.5 % (0.0-5.0); NEUTROPHILS % 43.9 % (36.0-66.0); RED BLOOD COUNT 3.26 10^6/uL (4.30-6.10)
[2019-10-27 13:31] LABS: NEUTROPHILS # 0.4 10^3/uL (1.5-8.5); PLATELET COUNT, AUTOMATED 37 10^3/uL (150-450); WHITE BLOOD COUNT 0.9 10^3/uL (4.0-10.0)
== END ==
LOC: M LABDRWAD 12:38
PROVIDERS: ATTEND Internal Medicine Hematology & Oncology
DX: D46.Z Other myelodysplastic syndromes (principal)

== ENCOUNTER → 2019-11-07 | Outpatient (REF) | payer MEDICARE, OTHER ==
[2019-11-07 12:56] LABS: BASO % 1.9 % (0.0-1.0); EOS % 3.8 % (0.0-3.0); HEMATOCRIT 28.5 % (42.0-52.0); HEMOGLOBIN 9.3 g/dl (13.5-17.5); LYMPH # 0.4 10^3/uL (1.5-5.0); LYMPH % 36.8 % (24.0-44.0); MEAN CORPUSCULAR HEMOGLOBIN 28.8 pg (27.0-33.0); MEAN CORPUSCULAR HGB CONC 32.6 g/dl (32.0-36.5); MEAN CORPUSCULAR VOLUME 88.2 fl (80.0-96.0); MONO # 0.1 10^3/uL (0.0-0.8); MONO % 9.4 % (0.0-5.0); NEUTROPHILS % 39.6 % (36.0-66.0); PLATELET COUNT, AUTOMATED 44 10^3/uL (150-450); RED BLOOD COUNT 3.23 10^6/uL (4.30-6.10)
[2019-11-07 12:57] LABS: NEUTROPHILS # 0.4 10^3/uL (1.5-8.5); WHITE BLOOD COUNT 0.9 10^3/uL (4.0-10.0)
== END ==
LOC: M LABDRWAD 12:19
PROVIDERS: ATTEND Internal Medicine Hematology & Oncology
DX: D46.Z Other myelodysplastic syndromes (principal)

== ENCOUNTER → 2019-11-10 | Outpatient (REF) | payer MEDICARE, OTHER ==
[2019-11-10 14:43] LABS: HEMOGLOBIN 8.2 g/dl (13.5-17.5); MEAN CORPUSCULAR HEMOGLOBIN 28.8 pg (27.0-33.0); MEAN CORPUSCULAR HGB CONC 32.8 g/dl (32.0-36.5); MEAN CORPUSCULAR VOLUME 87.7 fl (80.0-96.0); RED BLOOD COUNT 2.85 10^6/uL (4.30-6.10)
[2019-11-10 14:53] LABS: PLATELET COUNT, AUTOMATED 29 10^3/uL (150-450)
[2019-11-10 15:23] LABS: ATYPICAL LYMPH 8 % (0-5); BASOPHILS 2 % (0-1); EOSINOPHILS 4 % (0-3); LYMPHOCYTES 32 % (16-44); METAMYELOCYTES 2 % (0-0); MONOCYTES 6 % (0-5); NEUTROPHILS 44 % (28-66)
[2019-11-10 15:24] LABS: GIANT PLATELETS 1+; PLATELET ESTIMATE MARKED DECREASE (NORMAL); POIKILOCYTOSIS 1+; TOXIC GRANULATION 1+
== END ==
LOC: M LABDRWAD 14:24
PROVIDERS: ATTEND Internal Medicine Hematology & Oncology
DX: D46.Z Other myelodysplastic syndromes (principal)

== ENCOUNTER → 2019-11-14 | Outpatient (REF) | payer MEDICARE, OTHER ==
[2019-11-14 13:51] LABS: BASO % 1.2 % (0.0-1.0); EOS % 3.6 % (0.0-3.0); HEMATOCRIT 22.4 % (42.0-52.0); HEMOGLOBIN 7.4 g/dl (13.5-17.5); LYMPH # 0.3 10^3/uL (1.5-5.0); LYMPH % 30.1 % (24.0-44.0); MEAN CORPUSCULAR HEMOGLOBIN 28.6 pg (27.0-33.0); MEAN CORPUSCULAR VOLUME 86.5 fl (80.0-96.0); MONO # 0.1 10^3/uL (0.0-0.8); MONO % 10.8 % (0.0-5.0); NEUTROPHILS % 49.5 % (36.0-66.0); RED BLOOD COUNT 2.59 10^6/uL (4.30-6.10)
[2019-11-14 13:57] LABS: NEUTROPHILS # 0.4 10^3/uL (1.5-8.5); PLATELET COUNT, AUTOMATED 26 10^3/uL (150-450); WHITE BLOOD COUNT 0.8 10^3/uL (4.0-10.0)
== END ==
LOC: M LABDRWAD 12:34
PROVIDERS: ATTEND Internal Medicine Hematology & Oncology
DX: D46.Z Other myelodysplastic syndromes (principal)

== ENCOUNTER 2019-11-15 08:59 | Outpatient (CLI) | payer MEDICARE, BC, OTHER ==
[2019-11-15] VITALS (7 sets, daily range): BP systolic 125–151; BP diastolic 58–87
[~2019-11-15] VITALS: Ht 175.3 cm; Wt 88.0 kg
[2019-11-15] MEDS ORDERED: FUROSEMIDE 40MG/4ML VIAL (J1940) IV ONE (09:15)
== END 2019-11-15 16:01 | disposition home or self-care (01) ==
LOC: M INFU 08:59
PROVIDERS: ATTEND Internal Medicine
DX: D64.9 Anemia, unspecified (principal); Z88.8 Allergy status to other drugs, medicaments and biological substances
CPT/HCPCS: 36430; 36592; 86850; 86900; 86901; 86920; 96374; J1940; P9016

== ENCOUNTER 2019-11-16 07:18 | Outpatient (CLI) | payer MEDICARE, BC, OTHER ==
[~2019-11-16] VITALS: Ht 175.3 cm; Wt 88.0 kg
[2019-11-16 07:20] VITALS: BP 157/87
[2019-11-16 07:50] VITALS: BP 145/64
[2019-11-16 08:35] VITALS: BP 148/69
[2019-11-16 09:45] VITALS: BP 160/88
== END 2019-11-16 10:15 | disposition home or self-care (01) ==
LOC: M INFU 07:18
PROVIDERS: ATTEND Internal Medicine
DX: D64.9 Anemia, unspecified (principal); Z88.8 Allergy status to other drugs, medicaments and biological substances
CPT/HCPCS: 36430; P9016

== ENCOUNTER → 2019-11-17 | Outpatient (REF) | payer MEDICARE, OTHER ==
[2019-11-17 13:13] LABS: HEMATOCRIT 31.4 % (42.0-52.0); HEMOGLOBIN 10.7 g/dl (13.5-17.5); MEAN CORPUSCULAR HEMOGLOBIN 29.5 pg (27.0-33.0); MEAN CORPUSCULAR HGB CONC 34.1 g/dl (32.0-36.5); MEAN CORPUSCULAR VOLUME 86.5 fl (80.0-96.0); RED BLOOD COUNT 3.63 10^6/uL (4.30-6.10); WHITE BLOOD COUNT 1.1 10^3/uL (4.0-10.0)
[2019-11-17 13:49] LABS: PLATELET COUNT, AUTOMATED 29 10^3/uL (150-450)
[2019-11-17 13:55] LABS: ANISOCYTOSIS 1+; ATYPICAL LYMPH 4 % (0-5); BASOPHILS 4 % (0-1); EOSINOPHILS 6 % (0-3); LYMPHOCYTES 33 % (16-44); METAMYELOCYTES 1 % (0-0); MONOCYTES 4 % (0-5); NEUTROPHILS 47 % (28-66); PLATELET ESTIMATE MARKED DECREASE (NORMAL)
[2019-11-17 13:56] LABS: OVALOCYTES 1+; POIKILOCYTOSIS 1+
== END ==
LOC: M LABDRWAD 12:36
PROVIDERS: ATTEND Internal Medicine Hematology & Oncology
DX: D46.9 Myelodysplastic syndrome, unspecified (principal)

== ENCOUNTER → 2019-11-21 | Outpatient (REF) | payer MEDICARE, OTHER ==
[2019-11-21 12:54] LABS: HEMATOCRIT 30.8 % (42.0-52.0); MEAN CORPUSCULAR HEMOGLOBIN 29.2 pg (27.0-33.0); MEAN CORPUSCULAR HGB CONC 32.5 g/dl (32.0-36.5); MEAN CORPUSCULAR VOLUME 89.8 fl (80.0-96.0); RED BLOOD COUNT 3.43 10^6/uL (4.30-6.10)
[2019-11-21 12:58] LABS: PLATELET COUNT, AUTOMATED 49 10^3/uL (150-450)
[2019-11-21 13:18] LABS: ATYPICAL LYMPH 2 % (0-5); EOSINOPHILS 7 % (0-3); LYMPHOCYTES 50 % (16-44); METAMYELOCYTES 4 % (0-0); MONOCYTES 1 % (0-5); MYELOCYTES 4 % (0-0); NEUTROPHILS 28 % (28-66)
[2019-11-21 13:19] LABS: OVALOCYTES 1+; TEAR DROP CELLS 1+
[2019-11-21 13:20] LABS: GIANT PLATELETS 1+; PLATELET ESTIMATE MARKED DECREASE (NORMAL)
== END ==
LOC: M LABDRWAD 12:28
PROVIDERS: ATTEND Internal Medicine Hematology & Oncology
DX: D46.Z Other myelodysplastic syndromes (principal)

== ENCOUNTER → 2019-11-24 | Outpatient (REF) | payer MEDICARE, OTHER | LOC: M SFHCADAM 09:53 | PROVIDERS: ATTEND Internal Medicine | DX: I12.9 Hypertensive chronic kidney disease with stage 1 through stage 4 chronic kidney disease, or unspecified chronic kidney disease (principal); R73.01 Impaired fasting glucose; N18.3 Chronic kidney disease, stage 3 (moderate) ==

== ENCOUNTER → 2019-11-24 | Outpatient (REF) | payer MEDICARE, OTHER ==
[2019-11-24 14:09] LABS: HEMATOCRIT 30.3 % (42.0-52.0); HEMOGLOBIN 9.7 g/dl (13.5-17.5); MEAN CORPUSCULAR HEMOGLOBIN 28.9 pg (27.0-33.0); MEAN CORPUSCULAR VOLUME 90.2 fl (80.0-96.0); RED BLOOD COUNT 3.36 10^6/uL (4.30-6.10); WHITE BLOOD COUNT 1.1 10^3/uL (4.0-10.0)
[2019-11-24 14:16] LABS: PLATELET COUNT, AUTOMATED 68 10^3/uL (150-450)
[2019-11-24 15:12] LABS: ATYPICAL LYMPH 13 % (0-5); BASOPHILS 5 % (0-1); BLAST CELLS 1 % (0-0); EOSINOPHILS 4 % (0-3); LYMPHOCYTES 34 % (16-44); METAMYELOCYTES 3 % (0-0); MONOCYTES 8 % (0-5); MYELOCYTES 6 % (0-0); NEUTROPHILS 19 % (28-66); PLATELET ESTIMATE DECREASED (NORMAL)
[2019-11-24 15:13] LABS: TEAR DROP CELLS 1+
== END ==
LOC: M LABDRWAD 12:19
PROVIDERS: ATTEND Internal Medicine Hematology & Oncology
DX: D46.Z Other myelodysplastic syndromes (principal)

== ENCOUNTER → 2019-12-01 | Outpatient (REF) | payer MEDICARE, OTHER ==
[2019-12-01 13:06] LABS: EOS % 1.9 % (0.0-3.0); HEMATOCRIT 24.3 % (42.0-52.0); HEMOGLOBIN 7.8 g/dl (13.5-17.5); LYMPH # 0.3 10^3/uL (1.5-5.0); LYMPH % 31.4 % (24.0-44.0); MEAN CORPUSCULAR HEMOGLOBIN 28.5 pg (27.0-33.0); MEAN CORPUSCULAR HGB CONC 32.1 g/dl (32.0-36.5); MEAN CORPUSCULAR VOLUME 88.7 fl (80.0-96.0); MONO # 0.2 10^3/uL (0.0-0.8); MONO % 16.2 % (0.0-5.0); NEUTROPHILS % 41.9 % (36.0-66.0); RED BLOOD COUNT 2.74 10^6/uL (4.30-6.10); WHITE BLOOD COUNT 1.1 10^3/uL (4.0-10.0)
[2019-12-01 13:08] LABS: NEUTROPHILS # 0.4 10^3/uL (1.5-8.5); PLATELET COUNT, AUTOMATED 61 10^3/uL (150-450)
== END ==
LOC: M LABDRWAD 12:36
PROVIDERS: ATTEND Internal Medicine Hematology & Oncology
DX: D46.1 Refractory anemia with ring sideroblasts (principal)

== ENCOUNTER → 2019-12-05 | Outpatient (REF) | payer MEDICARE, OTHER ==
[2019-12-05 12:35] LABS: EOS % 2.1 % (0.0-3.0); HEMATOCRIT 25.1 % (42.0-52.0); HEMOGLOBIN 8.1 g/dl (13.5-17.5); LYMPH # 0.2 10^3/uL (1.5-5.0); MEAN CORPUSCULAR HEMOGLOBIN 28.1 pg (27.0-33.0); MEAN CORPUSCULAR HGB CONC 32.3 g/dl (32.0-36.5); MEAN CORPUSCULAR VOLUME 87.2 fl (80.0-96.0); MONO # 0.2 10^3/uL (0.0-0.8); MONO % 21.9 % (0.0-5.0); NEUTROPHILS % 44.7 % (36.0-66.0); RED BLOOD COUNT 2.88 10^6/uL (4.30-6.10)
[2019-12-05 12:47] LABS: NEUTROPHILS # 0.4 10^3/uL (1.5-8.5); PLATELET COUNT, AUTOMATED 48 10^3/uL (150-450)
== END ==
LOC: M LAB 12:27
PROVIDERS: ATTEND Internal Medicine Hematology & Oncology
DX: D46.Z Other myelodysplastic syndromes (principal)

== ENCOUNTER → 2019-12-19 | Outpatient (REF) | payer MEDICARE, OTHER ==
[2019-12-19 13:34] LABS: BASO % 0.6 % (0.0-1.0); EOS % 1.8 % (0.0-3.0); HEMATOCRIT 21.8 % (42.0-52.0); LYMPH # 0.4 10^3/uL (1.5-5.0); MEAN CORPUSCULAR HEMOGLOBIN 28.2 pg (27.0-33.0); MEAN CORPUSCULAR HGB CONC 32.1 g/dl (32.0-36.5); MEAN CORPUSCULAR VOLUME 87.9 fl (80.0-96.0); MONO # 0.2 10^3/uL (0.0-0.8); MONO % 9.5 % (0.0-5.0); NEUTROPHILS % 57.4 % (36.0-66.0); RED BLOOD COUNT 2.48 10^6/uL (4.30-6.10); WHITE BLOOD COUNT 1.7 10^3/uL (4.0-10.0)
[2019-12-19 13:38] LABS: PLATELET COUNT, AUTOMATED 46 10^3/uL (150-450)
== END ==
LOC: M LABDRWAD 12:14
PROVIDERS: ATTEND Internal Medicine Hematology & Oncology
DX: D46.Z Other myelodysplastic syndromes (principal)

== ENCOUNTER → 2019-12-21 | Outpatient (CLI) | payer MEDICARE, OTHER | LOC: M LAB 09:15 | PROVIDERS: ATTEND Internal Medicine | DX: D64.9 Anemia, unspecified (principal) ==

== ENCOUNTER 2019-12-22 09:02 | Outpatient (CLI) | payer MEDICARE, BC, OTHER ==
[2019-12-22] VITALS (8 sets, daily range): BP systolic 110–149; BP diastolic 58–88
[~2019-12-22] VITALS: Ht 175.3 cm; Wt 88.0 kg
== END 2019-12-22 13:30 | disposition home or self-care (01) ==
LOC: M INFU 09:02
PROVIDERS: ATTEND Internal Medicine
DX: D64.9 Anemia, unspecified (principal); Z88.8 Allergy status to other drugs, medicaments and biological substances
CPT/HCPCS: 36430; P9016

== ENCOUNTER → 2019-12-26 | Outpatient (REF) | payer MEDICARE, OTHER ==
[~2019-12-26] MED LIST changes: +MONT10TA10 PO; -MONT10TA4 PO
[2019-12-26 13:33] LABS: HEMATOCRIT 24.4 % (42.0-52.0); HEMOGLOBIN 7.8 g/dl (13.5-17.5); MEAN CORPUSCULAR HEMOGLOBIN 28.8 pg (27.0-33.0); RED BLOOD COUNT 2.71 10^6/uL (4.30-6.10); WHITE BLOOD COUNT 1.5 10^3/uL (4.0-10.0)
[2019-12-26 14:00] LABS: PLATELET COUNT, AUTOMATED 32 10^3/uL (150-450)
[2019-12-26 14:08] LABS: BASOPHILS 2 % (0-1); EOSINOPHILS 5 % (0-3); LYMPHOCYTES 31 % (16-44); MONOCYTES 5 % (0-5); NEUTROPHILS 57 % (28-66); OVALOCYTES 1+; PLATELET ESTIMATE MARKED DECREASE (NORMAL); POIKILOCYTOSIS 1+
== END ==
LOC: M LABDRWAD 12:16
PROVIDERS: ATTEND Internal Medicine Hematology & Oncology
DX: D46.Z Other myelodysplastic syndromes (principal)

== ENCOUNTER → 2019-12-26 | Outpatient (REF) | payer MEDICARE, OTHER ==
[~2019-12-26] MED LIST changes: -MONT10TA10 PO; +MONT10TA4 PO
== END ==
LOC: M SFHCADAM 09:42
PROVIDERS: ATTEND Internal Medicine
DX: I12.9 Hypertensive chronic kidney disease with stage 1 through stage 4 chronic kidney disease, or unspecified chronic kidney disease (principal); R73.01 Impaired fasting glucose; N18.3 Chronic kidney disease, stage 3 (moderate); Z53.8 Procedure and treatment not carried out for other reasons

== ENCOUNTER → 2019-12-28 | Outpatient (REF) | payer MEDICARE, OTHER ==
[2019-12-28 17:51] LABS: HEMATOCRIT 22.9 % (42.0-52.0); HEMOGLOBIN 7.4 g/dl (13.5-17.5); MEAN CORPUSCULAR HEMOGLOBIN 29.2 pg (27.0-33.0); MEAN CORPUSCULAR HGB CONC 32.3 g/dl (32.0-36.5); MEAN CORPUSCULAR VOLUME 90.5 fl (80.0-96.0); RED BLOOD COUNT 2.53 10^6/uL (4.30-6.10); WHITE BLOOD COUNT 1.5 10^3/uL (4.0-10.0)
[2019-12-28 17:57] LABS: PLATELET COUNT, AUTOMATED 36 10^3/uL (150-450)
[2019-12-28 19:10] LABS: ATYPICAL LYMPH 2 % (0-5); BASOPHILS 2 % (0-1); EOSINOPHILS 3 % (0-3); LYMPHOCYTES 31 % (16-44); METAMYELOCYTES 1 % (0-0); MONOCYTES 2 % (0-5); MYELOCYTES 3 % (0-0); NEUTROPHILS 53 % (28-66); PLATELET ESTIMATE DECREASED (NORMAL)
[2019-12-28 19:14] LABS: ANISOCYTOSIS 1+
[2019-12-28 19:15] LABS: POIKILOCYTOSIS 1+
== END ==
LOC: M LABDRWAD 17:28
PROVIDERS: ATTEND Internal Medicine Hematology & Oncology
DX: D46.Z Other myelodysplastic syndromes (principal)

== ENCOUNTER → 2019-12-29 | Outpatient (CLI) | payer MEDICARE, BC, OTHER ==
[~2019-12-29] MED LIST changes: +MONT10TA10 PO; -MONT10TA4 PO
== END ==
LOC: M LAB 16:40
PROVIDERS: ATTEND Internal Medicine
DX: D64.9 Anemia, unspecified (principal)

== ENCOUNTER 2019-12-30 14:09 | Outpatient (CLI) | payer MEDICARE, BC, OTHER ==
[~2019-12-30] VITALS: Ht 175.3 cm; Wt 88.0 kg
[~2019-12-30 14:09] MED LIST changes: -MONT10TA10 PO; +MONT10TA4 PO
[2019-12-30 14:34] VITALS: BP 147/69
[2019-12-30 14:51] VITALS: BP 139/63
[2019-12-30 15:35] VITALS: BP 152/78
[2019-12-30 16:10] VITALS: BP 168/84
== END 2019-12-30 16:10 | disposition home or self-care (01) ==
LOC: M INFU 14:09
PROVIDERS: ATTEND Physician Assistant
DX: D64.9 Anemia, unspecified (principal); Z88.8 Allergy status to other drugs, medicaments and biological substances
CPT/HCPCS: 36430; P9016

== ENCOUNTER → 2020-01-02 | Outpatient (REF) | payer MEDICARE, BC, OTHER ==
[2020-01-02 13:48] LABS: HEMATOCRIT 23.6 % (42.0-52.0); HEMOGLOBIN 7.7 g/dl (13.5-17.5); MEAN CORPUSCULAR HEMOGLOBIN 29.2 pg (27.0-33.0); MEAN CORPUSCULAR HGB CONC 32.6 g/dl (32.0-36.5); MEAN CORPUSCULAR VOLUME 89.4 fl (80.0-96.0); RED BLOOD COUNT 2.64 10^6/uL (4.30-6.10); WHITE BLOOD COUNT 1.2 10^3/uL (4.0-10.0)
[2020-01-02 14:33] LABS: PLATELET COUNT, AUTOMATED 46 10^3/uL (150-450)
[2020-01-02 14:47] LABS: ATYPICAL LYMPH 5 % (0-5); EOSINOPHILS 11 % (0-3); LYMPHOCYTES 36 % (16-44); METAMYELOCYTES 4 % (0-0); MONOCYTES 4 % (0-5); MYELOCYTES 5 % (0-0); NEUTROPHILS 35 % (28-66); PLATELET ESTIMATE MARKED DECREASE (NORMAL)
[2020-01-02 14:48] LABS: ANISOCYTOSIS 1+; DOHLE BODIES 1+
== END ==
LOC: M LABDRWAD 12:32
PROVIDERS: ATTEND Internal Medicine Hematology & Oncology
DX: D46.Z Other myelodysplastic syndromes (principal)

== ENCOUNTER → 2020-01-03 | Outpatient (CLI) | payer MEDICARE, BC, OTHER | LOC: M LAB 15:41 | PROVIDERS: ATTEND Internal Medicine | DX: D64.9 Anemia, unspecified (principal) ==

== ENCOUNTER 2020-01-04 10:42 | Outpatient (CLI) | payer MEDICARE, BC, OTHER ==
[~2020-01-04] VITALS: Ht 175.3 cm; Wt 88.0 kg
[2020-01-04 10:45] VITALS: BP 134/58
[2020-01-04 11:50] VITALS: BP 113/54
[2020-01-04 13:00] VITALS: BP 113/54
[2020-01-04 13:20] VITALS: BP 112/66
[2020-01-04 13:40] VITALS: BP 144/70
== END 2020-01-04 13:40 | disposition home or self-care (01) ==
LOC: M INFU 10:42
PROVIDERS: ATTEND Internal Medicine
DX: D64.9 Anemia, unspecified (principal); Z88.8 Allergy status to other drugs, medicaments and biological substances
CPT/HCPCS: 36430; P9016

== ENCOUNTER → 2020-01-09 | Outpatient (REF) | payer MEDICARE, BC, OTHER ==
[2020-01-09 13:05] LABS: HEMATOCRIT 25.3 % (42.0-52.0); MEAN CORPUSCULAR HEMOGLOBIN 28.2 pg (27.0-33.0); MEAN CORPUSCULAR HGB CONC 31.6 g/dl (32.0-36.5); MEAN CORPUSCULAR VOLUME 89.1 fl (80.0-96.0); RED BLOOD COUNT 2.84 10^6/uL (4.30-6.10); WHITE BLOOD COUNT 1.2 10^3/uL (4.0-10.0)
[2020-01-09 13:08] LABS: PLATELET COUNT, AUTOMATED 53 10^3/uL (150-450)
[2020-01-09 13:37] LABS: EOSINOPHILS 4 % (0-3); LYMPHOCYTES 62 % (16-44); NEUTROPHILS 34 % (28-66)
[2020-01-09 13:38] LABS: PLATELET ESTIMATE MARKED DECREASE (NORMAL)
== END ==
LOC: M LABDRWAD 12:37
PROVIDERS: ATTEND Internal Medicine Hematology & Oncology
DX: D46.Z Other myelodysplastic syndromes (principal)

== ENCOUNTER → 2020-01-26 | Outpatient (REF) | payer MEDICARE, OTHER ==
[2020-01-26 13:41] LABS: HEMATOCRIT 22.7 % (42.0-52.0); HEMOGLOBIN 7.5 g/dl (13.5-17.5); MEAN CORPUSCULAR HEMOGLOBIN 28.8 pg (27.0-33.0); MEAN CORPUSCULAR VOLUME 87.3 fl (80.0-96.0)
[2020-01-26 14:18] LABS: PLATELET COUNT, AUTOMATED 20 10^3/uL (150-450)
[2020-01-26 14:32] LABS: ATYPICAL LYMPH 1 % (0-5); BASOPHILS 3 % (0-1); EOSINOPHILS 2 % (0-3); LYMPHOCYTES 51 % (16-44); MONOCYTES 2 % (0-5); NEUTROPHILS 38 % (28-66)
[2020-01-26 14:33] LABS: OVALOCYTES 1+; PLATELET ESTIMATE MARKED DECREASE (NORMAL); POIKILOCYTOSIS 1+
== END ==
LOC: M LABDRWAD 12:38
PROVIDERS: ATTEND Internal Medicine Hematology & Oncology
DX: D46.Z Other myelodysplastic syndromes (principal)

== ENCOUNTER → 2020-01-30 | Outpatient (REF) | payer MEDICARE, OTHER ==
[2020-01-30 13:08] LABS: BASO % 1.2 % (0.0-1.0); EOS % 3.5 % (0.0-3.0); HEMATOCRIT 24.4 % (42.0-52.0); LYMPH # 0.3 10^3/uL (1.5-5.0); LYMPH % 32.6 % (24.0-44.0); MEAN CORPUSCULAR HEMOGLOBIN 27.9 pg (27.0-33.0); MEAN CORPUSCULAR HGB CONC 32.8 g/dl (32.0-36.5); MONO # 0.1 10^3/uL (0.0-0.8); MONO % 9.3 % (0.0-5.0); NEUTROPHILS % 42.9 % (36.0-66.0); RED BLOOD COUNT 2.87 10^6/uL (4.30-6.10)
[2020-01-30 13:15] LABS: NEUTROPHILS # 0.4 10^3/uL (1.5-8.5); PLATELET COUNT, AUTOMATED 18 10^3/uL (150-450); WHITE BLOOD COUNT 0.9 10^3/uL (4.0-10.0)
== END ==
LOC: M LABDRWAD 12:32
PROVIDERS: ATTEND Nurse Practitioner Family
DX: D46.Z Other myelodysplastic syndromes (principal)

== ENCOUNTER → 2020-02-01 | Outpatient (CLI) | payer MEDICARE, BC, OTHER | LOC: M LAB 15:59 | PROVIDERS: ATTEND Internal Medicine | DX: D64.9 Anemia, unspecified (principal) ==

== ENCOUNTER → 2020-02-01 | Outpatient (REF) | payer MEDICARE, OTHER ==
[2020-02-01 13:16] LABS: EOS % 3.7 % (0.0-3.0); HEMATOCRIT 22.2 % (42.0-52.0); HEMOGLOBIN 7.3 g/dl (13.5-17.5); LYMPH # 0.3 10^3/uL (1.5-5.0); LYMPH % 35.4 % (24.0-44.0); MEAN CORPUSCULAR HGB CONC 32.9 g/dl (32.0-36.5); MEAN CORPUSCULAR VOLUME 85.1 fl (80.0-96.0); MONO # 0.1 10^3/uL (0.0-0.8); MONO % 9.8 % (0.0-5.0); NEUTROPHILS % 41.3 % (36.0-66.0); RED BLOOD COUNT 2.61 10^6/uL (4.30-6.10)
[2020-02-01 14:09] LABS: NEUTROPHILS # 0.3 10^3/uL (1.5-8.5); PLATELET COUNT, AUTOMATED 18 10^3/uL (150-450); WHITE BLOOD COUNT 0.8 10^3/uL (4.0-10.0)
== END ==
LOC: M LABDRWAD 12:25
PROVIDERS: ATTEND Nurse Practitioner Family
DX: D46.Z Other myelodysplastic syndromes (principal)

== ENCOUNTER → 2020-02-02 | Outpatient (CLI) | payer MEDICARE, BC, OTHER ==
[2020-02-02 11:24] VITALS: BP 142/62
== END ==
LOC: M INFU 11:11
PROVIDERS: ATTEND Internal Medicine
DX: D64.9 Anemia, unspecified (principal)
CPT/HCPCS: 36430; P9016

== ENCOUNTER → 2020-02-06 | Outpatient (REF) | payer MEDICARE, BC, OTHER ==
[2020-03-01 23:09] LABS: EOS % 3.4 % (0.0-3.0); HEMATOCRIT 26.2 % (42.0-52.0); HEMOGLOBIN 8.6 g/dl (13.5-17.5); LYMPH # 0.3 10^3/uL (1.5-5.0); LYMPH % 35.6 % (24.0-44.0); MEAN CORPUSCULAR HEMOGLOBIN 28.5 pg (27.0-33.0); MEAN CORPUSCULAR HGB CONC 32.8 g/dl (32.0-36.5); MEAN CORPUSCULAR VOLUME 86.8 fl (80.0-96.0); MONO # 0.1 10^3/uL (0.0-0.8); MONO % 10.3 % (0.0-5.0); NEUTROPHILS % 34.6 % (36.0-66.0); RED BLOOD COUNT 3.02 10^6/uL (4.30-6.10)
[2020-03-01 23:12] LABS: NEUTROPHILS # 0.3 10^3/uL (1.5-8.5); PLATELET COUNT, AUTOMATED 22 10^3/uL (150-450); WHITE BLOOD COUNT 0.9 10^3/uL (4.0-10.0)
== END ==
LOC: M LABDRWAD 10:48
PROVIDERS: ATTEND Nurse Practitioner Family
DX: D46.Z Other myelodysplastic syndromes (principal)

== ENCOUNTER → 2020-02-08 | Outpatient (REF) | payer MEDICARE, BC, OTHER ==
[2020-03-05 13:07] LABS: HEMOGLOBIN 8.1 g/dl (13.5-17.5); MEAN CORPUSCULAR HEMOGLOBIN 28.1 pg (27.0-33.0); MEAN CORPUSCULAR HGB CONC 32.4 g/dl (32.0-36.5); MEAN CORPUSCULAR VOLUME 86.8 fl (80.0-96.0); RED BLOOD COUNT 2.88 10^6/uL (4.30-6.10); WHITE BLOOD COUNT 1.1 10^3/uL (4.0-10.0)
[2020-03-05 13:08] LABS: PLATELET COUNT, AUTOMATED 25 10^3/uL (150-450)
[2020-03-05 14:04] LABS: EOSINOPHILS 3 % (0-3); LYMPHOCYTES 42 % (16-44); METAMYELOCYTES 1 % (0-0); MONOCYTES 3 % (0-5); NEUTROPHILS 26 % (28-66)
[2020-03-05 14:05] LABS: ANISOCYTOSIS 1+; ATYPICAL LYMPH 11 % (0-5); MYELOCYTES 5 % (0-0); POIKILOCYTOSIS 2+
[2020-03-05 14:06] LABS: PLATELET ESTIMATE MARKED DECREASE (NORMAL)
== END ==
LOC: M LABDRWAD 14:55
PROVIDERS: ATTEND Nurse Practitioner Family
DX: D46.Z Other myelodysplastic syndromes (principal)

== ENCOUNTER → 2020-02-17 | Outpatient (REF) | payer MEDICARE, OTHER, BC ==
[2020-04-03 12:38] LABS: BILIRUBIN,TOTAL 0.7 MG/DL (0.2-1.0); CALCIUM LEVEL 8.9 MG/DL (8.8-10.2); CREATININE FOR GFR 1.28 MG/DL (0.70-1.30); GLOMERULAR FILTRATION RATE 58.2 (>42); MAGNESIUM LEVEL 2.1 MG/DL (1.8-2.4); PTH INTACT 29.9 PG/ML (18.5-88.0); TOTAL PROTEIN 5.8 GM/DL (6.4-8.2)
[2020-04-03 12:39] LABS: HEMOGLOBIN A1c 6.6 %
== END ==
LOC: M LABDRWAD 09:36
PROVIDERS: ATTEND Internal Medicine
DX: I12.9 Hypertensive chronic kidney disease with stage 1 through stage 4 chronic kidney disease, or unspecified chronic kidney disease (principal); N18.3 Chronic kidney disease, stage 3 (moderate); R73.01 Impaired fasting glucose

== ENCOUNTER → 2020-02-24 | Outpatient (CLI) | payer MEDICARE, OTHER, BC ==
[2020-04-12 20:06] LABS: BASO % 1.5 % (0.0-1.0); EOS % 1.5 % (0.0-3.0); HEMOGLOBIN 8.2 g/dl (13.5-17.5); LYMPH # 0.3 10^3/uL (1.5-5.0); LYMPH % 46.2 % (24.0-44.0); MEAN CORPUSCULAR HEMOGLOBIN 28.8 pg (27.0-33.0); MEAN CORPUSCULAR HGB CONC 32.8 g/dl (32.0-36.5); MEAN CORPUSCULAR VOLUME 87.7 fl (80.0-96.0); MONO # 0.1 10^3/uL (0.0-0.8); MONO % 18.5 % (0.0-5.0); NEUTROPHILS % 29.2 % (36.0-66.0); RED BLOOD COUNT 2.85 10^6/uL (4.30-6.10)
[2020-04-12 20:12] LABS: WHITE BLOOD COUNT 0.7 10^3/uL (4.0-10.0)
[2020-04-12 20:13] LABS: NEUTROPHILS # 0.2 10^3/uL (1.5-8.5); PLATELET COUNT, AUTOMATED 19 10^3/uL (150-450)
== END ==
LOC: M LAB 10:16
PROVIDERS: ATTEND Nurse Practitioner Family
DX: D46.20 Refractory anemia with excess of blasts, unspecified (principal)

== ENCOUNTER → 2020-02-27 | Outpatient (CLI) | payer MEDICARE, BC, OTHER ==
[2020-04-14 21:04] LABS: BASO % 1.8 % (0.0-1.0); EOS % 1.8 % (0.0-3.0); HEMATOCRIT 23.5 % (42.0-52.0); HEMOGLOBIN 7.8 g/dl (13.5-17.5); LYMPH # 0.2 10^3/uL (1.5-5.0); MEAN CORPUSCULAR HEMOGLOBIN 28.6 pg (27.0-33.0); MEAN CORPUSCULAR HGB CONC 33.2 g/dl (32.0-36.5); MEAN CORPUSCULAR VOLUME 86.1 fl (80.0-96.0); MONO # 0.1 10^3/uL (0.0-0.8); MONO % 12.7 % (0.0-5.0); NEUTROPHILS % 43.7 % (36.0-66.0); RED BLOOD COUNT 2.73 10^6/uL (4.30-6.10)
[2020-04-14 21:06] LABS: NEUTROPHILS # 0.2 10^3/uL (1.5-8.5); PLATELET COUNT, AUTOMATED 10 10^3/uL (150-450); WHITE BLOOD COUNT 0.6 10^3/uL (4.0-10.0)
== END ==
LOC: M LAB 09:49
PROVIDERS: ATTEND Nurse Practitioner Family
DX: D46.Z Other myelodysplastic syndromes (principal)

== ENCOUNTER → 2020-02-27 | Outpatient (CLI) | payer MEDICARE, BC, OTHER | LOC: M INFU 13:41 | PROVIDERS: ATTEND Internal Medicine | DX: D64.9 Anemia, unspecified (principal) ==

== ENCOUNTER 2020-02-28 07:22 | Outpatient (CLI) | payer MEDICARE, BC, OTHER | END 2020-02-28 12:15 | disposition home or self-care (01) | LOC: M INFU 07:22 | PROVIDERS: ATTEND Internal Medicine | DX: D64.9 Anemia, unspecified (principal) | CPT/HCPCS: 36430; P9016; P9036 ==

== ENCOUNTER 2020-02-29 08:02 | Outpatient (CLI) | payer MEDICARE, BC, OTHER ==
[~2020-02-29] VITALS: Ht 175.3 cm; Wt 88.0 kg
[2020-02-29 08:41] VITALS: BP 123/58
[2020-02-29 12:02] VITALS: BP 116/61
== END 2020-02-29 12:00 | disposition home or self-care (01) ==
LOC: M INFU 08:02
PROVIDERS: ATTEND Internal Medicine
DX: D64.9 Anemia, unspecified (principal)
CPT/HCPCS: 36430; P9016; P9036

== ENCOUNTER → 2020-03-02 | Outpatient (CLI) | payer MEDICARE, BC, OTHER ==
[2020-03-02 09:54] LABS: BASO % 2.2 % (0.0-1.0); EOS % 2.2 % (0.0-3.0); HEMATOCRIT 25.6 % (42.0-52.0); HEMOGLOBIN 8.7 g/dl (13.5-17.5); LYMPH # 0.2 10^3/uL (1.5-5.0); LYMPH % 42.2 % (24.0-44.0); MEAN CORPUSCULAR HEMOGLOBIN 29.2 pg (27.0-33.0); MEAN CORPUSCULAR VOLUME 85.9 fl (80.0-96.0); MONO % 8.9 % (0.0-5.0); NEUTROPHILS % 37.8 % (36.0-66.0); RED BLOOD COUNT 2.98 10^6/uL (4.30-6.10)
[2020-03-02 10:03] LABS: NEUTROPHILS # 0.2 10^3/uL (1.5-8.5); PLATELET COUNT, AUTOMATED 20 10^3/uL (150-450); WHITE BLOOD COUNT 0.5 10^3/uL (4.0-10.0)
== END ==
LOC: M LAB 09:12
PROVIDERS: ATTEND Nurse Practitioner Family
DX: D46.Z Other myelodysplastic syndromes (principal)

== ENCOUNTER → 2020-03-05 | Outpatient (CLI) | payer MEDICARE, BC, OTHER ==
[2020-03-05 11:47] LABS: EOS % 4.3 % (0.0-3.0); HEMATOCRIT 23.5 % (42.0-52.0); HEMOGLOBIN 7.9 g/dl (13.5-17.5); LYMPH # 0.2 10^3/uL (1.5-5.0); LYMPH % 39.1 % (24.0-44.0); MEAN CORPUSCULAR HEMOGLOBIN 29.5 pg (27.0-33.0); MEAN CORPUSCULAR HGB CONC 33.6 g/dl (32.0-36.5); MEAN CORPUSCULAR VOLUME 87.7 fl (80.0-96.0); MONO # 0.1 10^3/uL (0.0-0.8); MONO % 15.2 % (0.0-5.0); NEUTROPHILS % 34.9 % (36.0-66.0); RED BLOOD COUNT 2.68 10^6/uL (4.30-6.10)
[2020-03-05 12:49] LABS: PLATELET COUNT, AUTOMATED 10 10^3/uL (150-450); WHITE BLOOD COUNT 0.5 10^3/uL (4.0-10.0)
[2020-03-05 12:50] LABS: NEUTROPHILS # 0.2 10^3/uL (1.5-8.5)
== END ==
LOC: M LAB 10:05
PROVIDERS: ATTEND Nurse Practitioner Family
DX: D46.Z Other myelodysplastic syndromes (principal)

== ENCOUNTER → 2020-03-09 | Outpatient (CLI) | payer MEDICARE, BC, OTHER ==
[2020-03-09 11:20] LABS: EOS % 3.1 % (0.0-3.0); HEMATOCRIT 28.6 % (42.0-52.0); HEMOGLOBIN 9.5 g/dl (13.5-17.5); LYMPH # 0.2 10^3/uL (1.5-5.0); LYMPH % 27.7 % (24.0-44.0); MEAN CORPUSCULAR HEMOGLOBIN 28.6 pg (27.0-33.0); MEAN CORPUSCULAR HGB CONC 33.2 g/dl (32.0-36.5); MEAN CORPUSCULAR VOLUME 86.1 fl (80.0-96.0); MONO # 0.2 10^3/uL (0.0-0.8); MONO % 23.1 % (0.0-5.0); NEUTROPHILS % 38.4 % (36.0-66.0); RED BLOOD COUNT 3.32 10^6/uL (4.30-6.10)
[2020-03-09 11:23] LABS: NEUTROPHILS # 0.3 10^3/uL (1.5-8.5); PLATELET COUNT, AUTOMATED 18 10^3/uL (150-450); WHITE BLOOD COUNT 0.7 10^3/uL (4.0-10.0)
== END ==
LOC: M LAB 09:47
PROVIDERS: ATTEND Nurse Practitioner Family
DX: D46.Z Other myelodysplastic syndromes (principal)

== ENCOUNTER → 2020-03-22 | Outpatient (REF) | payer MEDICARE, BC, OTHER ==
[~2020-03-22] MED LIST changes: -MONT10TA4 PO; +MONT5TAB2 PO
[2020-03-22 10:37] LABS: HEMATOCRIT 23.5 % (42.0-52.0); HEMOGLOBIN 7.6 g/dl (13.5-17.5); LYMPH # 0.2 10^3/uL (1.5-5.0); LYMPH % 35.3 % (24.0-44.0); MEAN CORPUSCULAR HEMOGLOBIN 28.9 pg (27.0-33.0); MEAN CORPUSCULAR HGB CONC 32.3 g/dl (32.0-36.5); MEAN CORPUSCULAR VOLUME 89.4 fl (80.0-96.0); MONO # 0.1 10^3/uL (0.0-0.8); MONO % 23.5 % (0.0-5.0); NEUTROPHILS % 29.4 % (36.0-66.0); RED BLOOD COUNT 2.63 10^6/uL (4.30-6.10)
[2020-03-22 10:48] LABS: NEUTROPHILS # 0.2 10^3/uL (1.5-8.5); PLATELET COUNT, AUTOMATED 37 10^3/uL (150-450); WHITE BLOOD COUNT 0.5 10^3/uL (4.0-10.0)
== END ==
LOC: M LABDRWAD 08:50
PROVIDERS: ATTEND Nurse Practitioner Family
DX: D46.Z Other myelodysplastic syndromes (principal)